=== PATIENT | male | born 1985 | race Caucasian/White ===

== ENCOUNTER 2023-02-19 18:54 | Emergency (ER) | payer MEDICAID, SELFPAY ==
[2023-02-19 18:55] VITALS: BP 110/55; PULSE 98; RESP 17; TEMP 37.3; O2SAT 98; BMI 27.3
--- NOTE | 2023-02-19 19:23 | EXP.UTC ---
Discharge Plan Disposition Patient Disposition: Home, Self-Care Condition: Good Prescriptions Prescriptions: New clindamycin HCl 300 mg capsule 300 mg PO Q8H Qty: 30 0RF ibuprofen [IBU] 800 mg tablet 800 mg PO Q8HP PRN (Reason: Moderate Pain) Qty: 30 0RF Referrals Follow up/Referrals: Lyubov Garcia APRN [Primary Care Provider] - See instructions Activity Restrictions/Add. Instructions Additional Instructions/Restrictions: Take the ibuprofen for pain. Take the medications as directed. Follow up with your dentist Follow up with your primary care provider. GO TO THE ER FOR ANY WORSENING SYMPTOMS Clinical Impressions Clinical Impression: Abscess, dental Instructions Patient Instructions: Tooth Abscess, DI for Tooth Abscess, Ceftriaxone Injection Discharge ED Provider: Last Ng [facility] General Stated complaint: dental pain, nausea Mode of Arrival: Ambulatory Source of Information: Patient Limitations: No Limitations Time Seen by Provider: 02/19/23 19:23 Description of Symptoms (Recalled from Triage Doc. by RN): 37 M presents from home with c/o generalized illness, cough, dental pain, and nausea. He had his wisdom teeth cut out on 01/28/2023 and has felt bad since. He c/o mostly pain to the right side of his face. Denies fever History of Present Illness Provider Complaint: He has had worsening dental pain, swelling around a tooth extraction site in his right lower jaw, and swelling in that area of his face for the past 1 week. He just finished a round of amoxicillin that was prescribed by his dentist. He is here to see about more antibiotics. He has a f/u appt with his dentist. Related Data Previous Rx's Medication Instructions Recorded clindamycin HCl 300 mg capsule 300 mg PO Q8H #30 caps 02/19/23 ibuprofen 800 mg tablet (IBU) 800 mg PO Q8HP PRN Moderate Pain 02/19/23 #30 tabs Allergies Allergy/AdvReac Type Severity Reaction Status Date / Time INGREDIENT: NO KNOWN - NO Allergy Unknown Uncoded 09/30/17 15:13 KNOWN DRUG ALLERGY [facility] Disclaimer: The information contained in this section may have been updated after the patient was seen, as this information can be updated by other users. Social History Smoking Status: Former smoker alcohol intake: former current occupational status: employed Travel in the last 8 weeks: None ROS Obtained: Yes All systems reviewed & no additional complaints except as documented Constitutional Constitutional: Denies chills and Denies fever(s) Eyes Eyes: Denies eye discharge ENT Ears, Nose, Mouth, and Throat: Reports as per HPI, Denies dizziness, Denies otalgia and Denies sore throat Cardiovascular Cardiovascular: Denies chest pain Respiratory Respiratory: Denies shortness of breath, Denies chest congestion, Denies cough, Denies stridor and Denies wheezing Gastrointestinal Gastrointestingal: Denies nausea or vomiting Musculoskeletal Musculoskeletal: Reports system reviewed and no additional complaints, except as documented and Denies arthralgias Integumentary/Breasts Skin/Breast: Denies rash Neurologic Neurologic: Denies dizziness and Denies paresthesias Allergic/Immunologic Allergic/Immunologic: Denies wheezing Physical Exam General General appearance: alert and in no apparent distress Head Head exam: atraumatic, normocephalic and normal inspection Eye Eye exam: Present normal appearance, PERRL and EOMI ENT ENT exam: Present mucous membranes moist, TM's normal bilaterally and normal external ear exam Expanded ENT Exam Nose exam: Absent sinus tenderness Nasal speculum exam: Bilateral: normal Mouth exam: Present normal external inspection; Absent drooling Teeth exam: Present dental caries, fractured tooth #, dental tenderness # and gingival swelling Throat exam: Present normal inspection Neck Neck exam: Present normal inspection, full ROM and trachea m
[2023-02-19 20:16] VITALS: BP 110/55; PULSE 98; RESP 17; TEMP 37.3
== END 2023-02-19 20:24 | disposition home or self-care (01) ==
LOC: ER 19:08 → UTC 19:08
PROVIDERS: Emergency Provider Nurse Practitioner Family; PCP Nurse Practitioner
DX: K04.7 Periapical abscess without sinus (principal); R50.9 Fever, unspecified; R11.0 Nausea; Z87.891 Personal history of nicotine dependence
CPT/HCPCS: 96372; 99204; 99212; G0463; J0696

== ENCOUNTER 2024-12-19 16:39 | Observation (INO) | payer MEDICAID, SELFPAY ==
[2024-12-19 16:39] VITALS: BP 122/88; PULSE 134; RESP 24; TEMP 37.2; O2SAT 98; BMI 28.1
--- NOTE | 2024-12-19 17:05 | ECG_ITS ---
APPROVED REPORT Exam: Resting ECG HR:132 bpm ECG Measurements Heart Rate 132 AXES [place] 157 P 79 QRSd 81 QRS 37 QT 295 T 64 QTc 373 Conclusion SINUS TACHYCARDIA Electronically signed by : VARUN DAVILA, 12/19/2024 23:40:43
[2024-12-19] MEDS: BELLADONNA ALKALOIDS 60 ML ML PO (17:38)
[2024-12-19 17:46] LABS: Microscopic, Urine URINE MICROSCOPIC (MICROSCOPIC)
--- NOTE | 2024-12-19 17:52 | CT_ITS ---
PROCEDURE INFORMATION: Exam: CT Abdomen And Pelvis Without Contrast Exam date and time: 12/19/2024 5:03 PM Age: 39 years old Clinical indication: Abdominal pain; Additional info: Renal stone protocol TECHNIQUE: Imaging protocol: Computed tomography of the abdomen and pelvis without contrast. Radiation optimization: All CT scans at this facility use at least one of these dose optimization techniques: automated exposure control; mA and/or kV adjustment per patient size (includes targeted exams where dose is matched to clinical indication); or iterative reconstruction. COMPARISON: No relevant prior studies available. FINDINGS: Liver: Normal. No mass. Gallbladder and biliary ducts: Normal. No calcified stones. No ductal dilation. Pancreas: Normal. No ductal dilation. Spleen: Normal. No splenomegaly. Adrenal glands: Normal. No mass. Kidneys and ureters: There are no renal or ureteral calculi. There is no hydronephrosis or hydroureter. Stomach and bowel: Unremarkable. No obstruction. No mucosal thickening. Appendix: The appendix is absent. Intraperitoneal space: Unremarkable. No free air. No significant fluid collection. Vasculature: Unremarkable. No abdominal aortic aneurysm. Lymph nodes: Unremarkable. No enlarged lymph nodes. Urinary bladder: The urinary bladder is poorly evaluated due to underdistention. Reproductive: Unremarkable as visualized. Bones/joints: Unremarkable. No acute fracture. Soft tissues: Bilateral 2 cm fat containing inguinal hernias. IMPRESSION: No acute intra-abdominal abnormality. Bilateral 2 cm fat containing inguinal hernias.
[2024-12-19 17:59] VITALS: BP 133/87; PULSE 113; O2SAT 99
[2024-12-19 18:07] LABS: Chloride 103 mmol/L (98-107)
[2024-12-19 18:08] LABS: Albumin Level 5.5 g/dl (3.5-5.0); Potassium 4.8 mmoL/L (3.5-5.1); Sodium 138 mmol/L (136-145)
[2024-12-19 18:11] LABS: Alanine Aminotransferase 46 U/L (12-78); Albumin/Globulin Ratio 1.3 (1.1-1.8); Alkaline Phosphatase 115 U/L (38-126); Anion Gap 18.8 mEq/L (5-15); Aspartate Amino Transferase 63 U/L (17-59); Bilirubin,Total 3.1 mg/dl (0.2-1.3); Blood Urea Nitrogen 20 mg/dl (9-20); Calcium 10.7 mg/dl (8.4-10.2); Carbon Dioxide 21 mmol/L (22.0-30.0); Creatine Kinase 96 U/L (55-170); Creatinine Clearance Estimated 115 mL/min (50-200); Estimated Glomerular Filt Rate 83 ml/min (>60); GFR (African American) 101 ML/MIN (>60); Globulin 4.4 g/dL (1.3-3.2); Glucose 96 mg/dl (74-100); Lipase 128 U/L (23-300); Magnesium 1.8 mg/dl (1.6-2.3); Total Protein,Serum 9.9 g/dl (6.3-8.2)
[2024-12-19 18:19] LABS: Appearance,Urine Clear (Clear); Color,Urine Dark Yellow (Yellow); Glucose,Urine (UA) Negative (Negative); PH,Urine 6.5 (5.0-8.5); Protein,Urine Trace (Negative); Specific Gravity, Urine 1.025 (1.005-1.030)
[2024-12-19 18:20] LABS: Blood, Urine Trace (Negative); Ketones,Urine Large (Negative); Nitrate,Urine Negative (Negative)
[2024-12-19 18:21] LABS: Bilirubin,Urine Trace (Negative); Leukocyte Esterase,Urine Negative (Negative)
[2024-12-19 18:23] LABS: Troponin I 0.02 ng/ml (0.00-0.034)
[2024-12-19 18:27] LABS: Bacteria,Urine 2+ /lpf; Mucus,Urine 3+ /lpf; RBC,Urine Occasional #/hpf (0-3); Squamous Epithelial Cell,Urine Occasional #/hpf (0-5)
[2024-12-19 18:42] LABS: Thyroid Stimulating Hormone 1.36 uIU/mL (0.465-4.68)
[2024-12-19 19:37] LABS: Basophils # 0.1 K/mm3 (0-0.2); Basophils % 0.4 % (0.1-2.0); Eosinophils % 0.3 % (0.1-12.0); Hematocrit 48.1 % (42.0-52.0); Hemoglobin 16.8 g/dL (14.1-18.0); Lymphocytes # 3.1 K/mm3 (0.7-4.5); Lymphocytes % 23.3 % (10-50); Mean Corpuscular HGB Conc 34.9 g/dL (31.8-35.4); Mean Corpuscular Volume 85.9 fl (80-94); Mean Platelet Volume 10.1 fl (7.4-10.4); Monocytes # 1.6 K/mm3 (0.1-1.0); Monocytes % 11.8 % (1.7-9.3); Neutrophils # 8.6 K/mm3 (1.8-7.8); Neutrophils % 63.9 % (37.0-80.0); Platelet Count 324 K/mm3 (142-424); White Blood Count 13.4 K/mm3 (4.8-10.8)
[2024-12-19 19:46] VITALS: BP 144/89; PULSE 125; O2SAT 99
--- NOTE | 2024-12-19 19:52 | PC.NURSE ---
rounded on pt . pt voices no needs. call light in reach. family at bedside.
[2024-12-19 20:00] VITALS: BP 115/92; PULSE 100; O2SAT 99
[2024-12-19] MEDS: LIDOCAINE 1% 10ML MDV SUBCUT (20:13)
[2024-12-19] MEDS: ONDANSETRON 4MG ODT 4 MG SL (20:13)
[2024-12-19] MEDS: cefTRIAXone 1GM VIAL 1 GM IM (20:13)
[2024-12-19 20:23] LABS: Troponin I < 0.01 ng/ml (0.00-0.034)
[2024-12-19] MEDS: HYDROMORPHONE 2MG/ML SYRINGE 0.5 MG IV (21:01)
[2024-12-19 22:47] LABS: Barbiturates Screen,Urine Negative ng/ml (<200)
[2024-12-19 22:48] LABS: Benzodiazepines Screen,Urine Negative ng/ml (<200)
[2024-12-19 22:49] LABS: Cannabinoid Screen,Urine Positive ng/ml (<50)
[2024-12-19 22:50] LABS: Cocaine Screen,Urine Negative ng/ml (<300); Methadone Screen,Urine Negative ng/ml (<300)
[2024-12-19 22:51] LABS: Opiate Screen,Urine Negative ng/ml (<300)
[2024-12-19 22:52] LABS: Phencyclidine Screen,Urine Negative ng/ml (<25)
--- NOTE | 2024-12-19 22:54 | HMH.EDGENADL ---
Discharge Plan Disposition Patient Disposition: Admitted Condition: Good Prescriptions Prescriptions: No Action clindamycin HCl 300 mg capsule 300 mg PO Q8H Qty: 30 0RF ibuprofen [IBU] 800 mg tablet 800 mg PO Q8HP PRN (Reason: Moderate Pain) Qty: 30 0RF Referrals Follow up/Referrals: Provider,Referral, [Primary Care Provider] - See instructions Clinical Impressions Clinical Impression: Abdominal pain, Acute UTI Print Language Print Language: Hebrew Discharge ED Provider: Ganesh Olvera General Adult HPI <JABARI Ravi - Last Filed: 12/19/24 23:44> General Chief complaint: Chest Pain Stated complaint: chest pain Time Seen by Provider: 12/19/24 16:55 Mode of Arrival: Ambulatory Source of Information: Patient Description of Symptoms (Recalled from ER Triage Doc. by RN): pt having chest and abdominal pain for two days. anxious. History of Present Illness HPI narrative: Patient presents complaining of abdominal pain. He reports a pop in his abdomen when he attempted to urinate. He reports black urine. He has had some dysuria as well. He has had subjective fever. Denies any nausea or vomiting. Started yesterday evening complaint: Abdominal pain Onset (ago): day(s) (1) Location: abdomen Radiation: non-radiation Severity: moderate Quality: other (pop ) Consistency: constant Relieving factors: none Exacerbating factors: none Associated symptoms: fever/chills; negative nausea/vomiting Related Data Previous Rx's ?Medication ?Instructions ?Recorded clindamycin HCl 300 mg capsule 300 mg PO Q8H #30 caps 02/19/23 ibuprofen 800 mg tablet (IBU) 800 mg PO Q8HP PRN Moderate Pain 02/19/23 #30 tabs Allergies Allergy/AdvReac Type Severity Reaction Status Date / Time INGREDIENT: NO KNOWN - NO Allergy Unknown Uncoded 09/30/17 15:13 KNOWN DRUG ALLERGY [facility] <JABARI Ravi - Last Filed: 12/19/24 23:44> [facility] Disclaimer: The information contained in this section may have been updated after the patient was seen, as this information can be updated by other users. Social History (Updated 02/20/23 @ 09:04 by Last Ng APRN) Smoking Status: Unknown if ever smoked alcohol intake: former current occupational status: employed Travel in the last 8 weeks: None Have you lived/traveled outside [place] in past 30 days?: No Contact w/someone who lives/traveled outside US past 30 days?: No Exposure to someone with infectious disease in past 14 days?: No Do you have a fever (greater than 100.4 F or 38 C)?: No Have you tested positive for COVID-19: No Exposed to someone with COVID-19 in past 14 days?: No Do you have a sore throat?: No Do you have a cough?: No Do you have any weakness?: No Do you have any diarrhea?: No Are you experiencing any unusual bleeding?: No Do you have any muscle aches/pain?: No Do you have any abdominal pain?: No Are you experiencing loss of taste or smell?: No <JABARI Ravi - Last Filed: 12/19/24 23:44> ROS Obtained: Yes Systems reviewed as appropriate & no additional complaints except as documented Physical Exam <JABARI Ravi Last Filed: 12/19/24 23:44> General General appearance: alert and in no apparent distress Head Head exam: atraumatic and normocephalic Eye Eye exam: Present normal appearance and EOMI Chest Chest inspection: Present symmetric chest wall rise Respiratory Respiratory exam: Present normal lung sounds bilaterally; Absent wheezes or stridor Cardiovascular Cardiovascular exam: Present regular rate and normal rhythm; Absent systolic murmur Abdominal Exam Abdominal exam: Present soft; Absent distention, guarding or rebound Abdominal tenderness: Present LUQ and LLQ Extremities Exam Extremities exam: Present full ROM Neurological Exam Neurological exam: Present alert and oriented X3 Psychiatric Psychiatric exam: Present normal affect and normal mood Skin Skin exam: Present warm, dry and intact Medical Decision Making <JABARI Ravi Last Filed: 12/19/24 23:44> Medical Records Screening: Per USPSTF and CDC recommendations, given the prevalence of disease in our region, it is our hospital?s policy to screen for HIV and viral Hepatitis for all patients aged 18 and over and those with ongoing risk factors. [place] Inquiry Pt receiving controlled substance: No Vital Signs: 12/19/24 16:39 12/19/24 17:59 12/19/24 19:46 Temperature 98.9 F Temperature Source Oral Pulse Rate 113 H 125 H Pulse Rate [Right] 134 H Respiratory Rate 24 Blood Pressure 133/87 144/89 H Blood Pressure [Right Arm] 122/88 Blood Pressure Mean 97 Blood Pressure Mean [Right Arm] 99 02 Sat by Pulse Oximetry 98 99 99 Oxygen Delivery Method Room Air Room Air 12/19/24 20:00 Temperature Temperature Source Pulse Rate 100 H Pulse Rate [Right] Respiratory Rate Blood Pressure 115/92 H Blood Pressure [Right Arm] Blood Pressure Mean Blood Pressure Mean [Right Arm] 02 Sat by Pulse Oximetry 99 Oxygen Delivery Method Lab Data Lab Results 12/19/24 17:40: Sodium 138, Potassium 4.8, Chloride 103, Carbon Dioxide 21 L, Anion Gap 18.8 H, BUN 20, Creatinine 1.00, Estimated Creat Clear 115, Estimated GFR 83, Est GFR ( Amer) 101, Glucose 96, Calcium 10.7 H, Magnesium 1.8, Total Bilirubin 3.1 H, AST 63 H, ALT 46, Alkaline Phosphatase 115, Total Creatine Kinase 96, Troponin I 0.02, Total Protein 9.9 H, Albumin 5.5 H, Globulin 4.4 H, Albumin/Globulin Ratio 1.3, Lipase 128, TSH 1.36, Urine Color Dark yellow, Urine Appearance Clear, Urine pH 6.5, Ur Specific [place] 1.025, Urine Protein Trace A, Urine Glucose (UA) Negative, Urine Ketones Large, Urine Blood Trace A, Urine Nitrate Negative, Urine Bilirubin Trace, Urine Urobilinogen 2.0, Ur Leukocyte Esterase Negative, Urine RBC Occasional, Urine WBC 5-10, Ur Squamous Epith Cells Occasional, Urine Bacteria 2+, Urine Mucus 3+, Urine Opiates Screen Negative, Urine Methadone Screen Negative, Ur Barbituates Screen Negative, Ur Phencyclidine Scrn Negative, Ur Amphetamines Screen TNP, U Benzodiazepines Scrn Negative, Urine Cocaine Screen Negative, U Marijuana (THC) Screen Positive H 12/19/24 19:30: WBC 13.4 H, RBC 5.60, Hgb 16.8, Hct 48.1, MCV 85.9, MCH 30.0, MCHC 34.9, RDW 12.0, Plt Count 324, MPV 10.1, Neut % (Auto) 63.9, Lymph % (Auto) 23.3, [place] % (Auto) 11.8 H, Eos % (Auto) 0.3, Baso % (Auto) 0.4, Neut # (Auto) 8.6 H, Lymph # (Auto) 3.1, [place] # (Auto) 1.6 H, Eos # (Auto) 0.0, Baso # (Auto) 0.1, Troponin I < 0.01 12/19/24 23:00: Lactate 2.1, Troponin I < 0.01 12/19/24 19:30 12/19/24 17:40 Orders (Tests/Meds): ED MEDICATIONS Generic Name Dose Route Start Last Admin Trade Name Freq PRN Reason Stop Dose Admin Acetaminophen 650 mg 12/19/24 23:38 Acetaminophen 325mg Tab PO 01/18/25 23:37 Q4HP PRN Fever or Mild Pain (1-3) Docusate Sodium 100 mg 12/20/24 09:00 Docusate Sodium 100 Mg Capsule PO 01/19/25 08:59 DAILY ARLEN Enoxaparin Sodium 40 mg 12/20/24 09:00 Enoxaparin 40mg/0.4ml Syringe SUBCUT 01/19/25 08:59 DAILY ARLEN Sodium Chloride 1,000 mls @ 100 mls/hr 12/19/24 23:45 Sod Chlor 0.9% 1000ml Bag IV 01/18/25 23:44 .Q10H ARLEN Ceftriaxone Sodium 1 gm/ 50 mls @ 100 mls/hr 12/20/24 09:00 Sodium Chloride IV 12/30/24 08:59 Q24H ARLEN Ketorolac Tromethamine 30 mg 12/19/24 23:38 Ketorolac 30mg/Ml Vial IV 12/24/24 23:37 Q6HP PRN Moderate Pain (4-6) Nicotine 21 mg 12/19/24 23:38 Nicotine 21mg/24hr Patch TD 01/18/25 23:37 DAILYP PRN Nicotine Cravings Ondansetron HCl 4 mg 12/19/24 23:38 Ondansetron 4mg/2ml Vial IV 01/18/25 23:37 Q8HP PRN Nausea Discontinued Medications Generic Name Dose Route Start Last Admin Trade Name Freq PRN Reason Stop Dose Admin Belladonna Alkaloids 60 ml 12/19/24 17:36 12/19/24 17:38 Belladonna Alkaloids 60 Ml Ml PO 12/19/24 17:37 60 ml ONCE ONE Administration Ceftriaxone Sodium 1 gm 12/19/24 20:15 12/19/24 20:13 Ceftriaxone 1gm Vial IM 12/19/24 20:16 1 gm ONCE ONE Administration Hydromorphone HCl 0.5 mg 12/19/24 20:27 12/19/24 21:01 Hydromorphone 2mg/Ml Syringe IV 12/19/24 20:28 0.5 mg ONCE ONE Administration Ceftriaxone Sodium 1 gm/ 50 mls @ 100 mls/hr 12/19/24 19:02 12/19/24 20:03 Sodium Chloride IV 12/19/24 19:31 Not Given ONCE STA Lidocaine HCl 1 ml 12/19/24 20:12 12/19/24 20:13 Lidocaine 1% 10ml Mdv SUBCUT 12/19/24 20:13 1 ml ONCE ONE Administration Ondansetron HCl 4 mg 12/19/24 17:05 12/19/24 20:03 Ondansetron 4mg/2ml Vial IV 12/19/24 17:06 Not Given ONCE ONE Ondansetron HCl 4 mg 12/19/24 20:15 12/19/24 20:13 Ondansetron 4mg Odt SL 12/19/24 20:16 4 mg ONCE ONE Administration ORDERS Category Date Time Status CT abdomen pelvis wo con Stat Cat Scan 12/19/24 17:52 Completed Basic Metabolic Panel [facility] Lab 12/20/24 06:00 Ordered CBC w/Auto Diff [Complete Blood Count Auto Diff] Stat Lab 12/19/24 19:30 Completed CK [Creatine Kinase] Stat Lab 12/19/24 17:40 Completed CMP [Comprehensive Metabolic Panel] Stat Lab 12/19/24 17:40 Completed CRP [C-Reactive Protein] [facility] Lab 12/20/24 06:00 Ordered CRP [C-Reactive Protein] Stat Lab 12/19/24 23:44 Ordered Chlam/Gono/Trich/Myco, YAMILKA, Ur Stat Lab 12/19/24 Received Comprehensive Metabolic Panel [facility] Lab 12/20/24 06:00 Ordered Drug Screen,Urine Stat Lab 12/19/24 17:40 Completed Erythrocyte Sedimentation Rate [facility] Lab 12/20/24 06:00 Ordered Erythrocyte Sedimentation Rate Stat Lab 12/19/24 23:44 Ordered Lactic Acid Stat Lab 12/19/24 23:00 Completed Lipase Stat Lab 12/19/24 17:40 Completed Lipid Panel [facility] Lab 12/20/24 06:00 Ordered Magnesium [facility] Lab 12/20/24 06:00 Ordered Magnesium Stat Lab 12/19/24 17:40 Completed TSH [Thyroid Stimulating Hormone] Stat Lab 12/19/24 17:40 Completed Trop I [Troponin I] Stat Lab 12/19/24 17:40 Completed Troponin I Q3H Lab 12/19/24 19:30 Completed Troponin I Q3H Lab 12/19/24 23:00 Completed Urinalysis and Microscopic Stat Lab 12/19/24 17:40 Completed Urine Culture Stat Micro 12/19/24 17:40 Received EKG Request [ECG Request] Stat Y 12/19/24 17:05 Ordered Medical Decision Narrative: In summary patient is a 39-year-old male who presents the emergency department for evaluation of abdominal pain. Patient is hemodynamically upon arrival, afebrile. Left-sided abdominal tenderness on exam. Differential diagnosis includes ureteral stone, diverticulitis, viral illness. Initial workup will be conducted with hematologic labs, CT abdomen pelvis. Initial inventions include IV fluid bolus. Initial workup reviewed by me remarkable for hematuria, white blood cells on urine and elevated bilirubin. Upon repeat evaluation patient has had intractable abdominal pain. Given this patient was given Rocephin for UTI and admitted to the hospitalist. <Ganesh Olvera MD - Last Filed: 12/19/24 23:46> Vital Signs: 12/19/24 16:39 12/19/24 17:59 12/19/24 19:46 Temperature 98.9 F Temperature Source Oral Pulse Rate 113 H 125 H Pulse Rate [Right] 134 H Respiratory Rate 24 Blood Pressure 133/87 144/89 H Blood Pressure [Right Arm] 122/88 Blood Pressure Mean 97 Blood Pressure Mean [Right Arm] 99 02 Sat by Pulse Oximetry 98 99 99 Oxygen Delivery Method Room Air Room Air 12/19/24 20:00 Temperature Temperature Source Pulse Rate 100 H Pulse Rate [Right] Respiratory Rate Blood Pressure 115/92 H Blood Pressure [Right Arm] Blood Pressure Mean Blood Pressure Mean [Right Arm] 02 Sat by Pulse Oximetry 99 Oxygen Delivery Method Lab Data Lab Results 12/19/24 17:40: Sodium 138, Potassium 4.8, Chloride 103, Carbon Dioxide 21 L, Anion Gap 18.8 H, BUN 20, Creatinine 1.00, Estimated Creat Clear 115, Estimated GFR 83, Est GFR ( Amer) 101, Glucose 96, Calcium 10.7 H, Magnesium 1.8, Total Bilirubin 3.1 H, AST 63 H, ALT 46, Alkaline Phosphatase 115, Total Creatine Kinase 96, Troponin I 0.02, Total Protein 9.9 H, Albumin 5.5 H, Globulin 4.4 H, Albumin/Globulin Ratio 1.3, Lipase 128, TSH 1.36, Urine Color Dark yellow, Urine Appearance Clear, Urine pH 6.5, Ur Specific [place] 1.025, Urine Protein Trace A, Urine Glucose (UA) Negative, Urine Ketones Large, Urine Blood Trace A, Urine Nitrate Negative, Urine Bilirubin Trace, Urine Urobilinogen 2.0, Ur Leukocyte Esterase Negative, Urine RBC Occasional, Urine WBC 5-10, Ur Squamous Epith Cells Occasional, Urine Bacteria 2+, Urine Mucus 3+, Urine Opiates Screen Negative, Urine Methadone Screen Negative, Ur Barbituates Screen Negative, Ur Phencyclidine Scrn Negative, Ur Amphetamines Screen TNP, U Benzodiazepines Scrn Negative, Urine Cocaine Screen Negative, U Marijuana (THC) Screen Positive H 12/19/24 19:30: WBC 13.4 H, RBC 5.60, Hgb 16.8, Hct 48.1, MCV 85.9, MCH 30.0, MCHC 34.9, RDW 12.0, Plt Count 324, MPV 10.1, Neut % (Auto) 63.9, Lymph % (Auto) 23.3, [place] % (Auto) 11.8 H, Eos % (Auto) 0.3, Baso % (Auto) 0.4, Neut # (Auto) 8.6 H, Lymph # (Auto) 3.1, [place] # (Auto) 1.6 H, Eos # (Auto) 0.0, Baso # (Auto) 0.1, Troponin I < 0.01 12/19/24 23:00: Lactate 2.1, Troponin I < 0.01 Orders (Tests/Meds): ED MEDICATIONS Generic Name Dose Route Start Last Admin Trade Name Freq PRN Reason Stop Dose Admin Acetaminophen 650 mg 12/19/24 23:38 Acetaminophen 325mg Tab PO 01/18/25 23:37 Q4HP PRN Fever or Mild Pain (1-3) Docusate Sodium 100 mg 12/20/24 09:00 Docusate Sodium 100 Mg Capsule PO 01/19/25 08:59 DAILY ARLEN Enoxaparin Sodium 40 mg 12/20/24 09:00 Enoxaparin 40mg/0.4ml Syringe SUBCUT 01/19/25 08:59 DAILY ARLEN Sodium Chloride 1,000 mls @ 100 mls/hr 12/19/24 23:45 Sod Chlor 0.9% 1000ml Bag IV 01/18/25 23:44 .Q10H ARLEN Ceftriaxone Sodium 1 gm/ 50 mls @ 100 mls/hr 12/20/24 09:00 Sodium Chloride IV 12/30/24 08:59 Q24H ARLEN Ketorolac Tromethamine 30 mg 12/19/24 23:38 Ketorolac 30mg/Ml Vial IV 12/24/24 23:37 Q6HP PRN Moderate Pain (4-6) Nicotine 21 mg 12/19/24 23:38 Nicotine 21mg/24hr Patch TD 01/18/25 23:37 DAILYP PRN Nicotine Cravings Ondansetron HCl 4 mg 12/19/24 23:38 Ondansetron 4mg/2ml Vial IV 01/18/25 23:37 Q8HP PRN Nausea Discontinued Medications Generic Name Dose Route Start Last Admin Trade Name Freq PRN Reason Stop Dose Admin Belladonna Alkaloids 60 ml 12/19/24 17:36 12/19/24 17:38 Belladonna Alkaloids 60 Ml Ml PO 12/19/24 17:37 60 ml ONCE ONE Administration Ceftriaxone Sodium 1 gm 12/19/24 20:15 12/19/24 20:13 Ceftriaxone 1gm Vial IM 12/19/24 20:16 1 gm ONCE ONE Administration Hydromorphone HCl 0.5 mg 12/19/24 20:27 12/19/24 21:01 Hydromorphone 2mg/Ml Syringe IV 12/19/24 20:28 0.5 mg ONCE ONE Administration Ceftriaxone Sodium 1 gm/ 50 mls @ 100 mls/hr 12/19/24 19:02 12/19/24 20:03 Sodium Chloride IV 12/19/24 19:31 Not Given ONCE STA Lidocaine HCl 1 ml 12/19/24 20:12 12/19/24 20:13 Lidocaine 1% 10ml Mdv SUBCUT 12/19/24 20:13 1 ml ONCE ONE Administration Ondansetron HCl 4 mg 12/19/24 17:05 12/19/24 20:03 Ondansetron 4mg/2ml Vial IV 12/19/24 17:06 Not Given ONCE ONE Ondansetron HCl 4 mg 12/19/24 20:15 12/19/24 20:13 Ondansetron 4mg Odt SL 12/19/24 20:16 4 mg ONCE ONE Administration ORDERS Category Date Time Status CT abdomen pelvis wo con Stat Cat Scan 12/19/24 17:52 Completed Basic Metabolic Panel [facility] Lab 12/20/24 06:00 Ordered CBC w/Auto Diff [Complete Blood Count Auto Diff] Stat Lab 12/19/24 19:30 Completed CK [Creatine Kinase] Stat Lab 12/19/24 17:40 Completed CMP [Comprehensive Metabolic Panel] Stat Lab 12/19/24 17:40 Completed CRP [C-Reactive Protein] [facility] Lab 12/20/24 06:00 Ordered CRP [C-Reactive Protein] Stat Lab 12/19/24 23:44 Ordered Chlam/Gono/Trich/Myco, YAMILKA, Ur Stat Lab 12/19/24 Received Comprehensive Metabolic Panel [facility] Lab 12/20/24 06:00 Ordered Drug Screen,Urine Stat Lab 12/19/24 17:40 Completed Erythrocyte Sedimentation Rate [facility] Lab 12/20/24 06:00 Ordered Erythrocyte Sedimentation Rate Stat Lab 12/19/24 23:44 Ordered Lactic Acid Stat Lab 12/19/24 23:00 Completed Lipase Stat Lab 12/19/24 17:40 Completed Lipid Panel [facility] Lab 12/20/24 06:00 Ordered Magnesium [facility] Lab 12/20/24 06:00 Ordered Magnesium Stat Lab 12/19/24 17:40 Completed TSH [Thyroid Stimulating Hormone] Stat Lab 12/19/24 17:40 Completed Trop I [Troponin I] Stat Lab 12/19/24 17:40 Completed Troponin I Q3H Lab 12/19/24 19:30 Completed Troponin I Q3H Lab 12/19/24 23:00 Completed Urinalysis and Microscopic Stat Lab 12/19/24 17:40 Completed Urine Culture Stat Micro 12/19/24 17:40 Received EKG Request [ECG Request] Stat Y 12/19/24 17:05 Ordered Medical Decision Narrative: In summary patient is a 39-year-old male who presents the emergency department for evaluation of abdominal pain. Patient is hemodynamically upon arrival, afebrile. Left-sided abdominal tenderness on exam. Differential diagnosis includes ureteral stone, diverticulitis, viral illness. Initial workup will be conducted with hematologic labs, CT abdomen pelvis. Initial inventions include IV fluid bolus. Initial workup reviewed by me remarkable for hematuria, white blood cells on urine and elevated bilirubin. Upon repeat evaluation patient has had intractable abdominal pain. Given this patient was given Rocephin for UTI and admitted to the hospitalist. I was consulted by the LYDIA, and we discussed the complexity of the problems being addressed.I approved the treatment and management plan for this patient?s care in the Emergency Department, thus performing a substantive portion of the medical decision making.Signed, Gaensh Olvera MD [facility] <JABARI Ravi - Last Filed: 12/19/24 23:44> Critical Care Time Critical Care Time: No
[2024-12-19 23:35] LABS: Lactic Acid 2.1 mmol/L (0.7-2.1)
--- NOTE | 2024-12-19 23:44 | P.HP_ITS ---
<Statement entered by Last Lopez MD - 12/20/24 15:25> Rounded on patient after nurse practitioner. Personally examined and interviewed patient. Agree with exam findings and care plan as documented. History of Present Illness *Admission Date: 12/19/24 *Reason for visit:: Abdominal pain *History of present illness: A 39-year-old male presents to the emergency department complaining of abdominal pain of unclear duration. He initially reported to ED staff a sudden pop sensation in his abdomen while attempting to urinate, followed by persistent left-sided pain, black urine, dysuria, and a subjective fever. He denied nausea or vomiting at that time. However, during my subsequent interview as the consulting hospitalist, he provided a conflicting history, endorsing multiple bouts of diarrhea with dark stools?details not disclosed to the ED team. He also reported infrequent bowel movements, sometimes going up to 30 days without one, and initially claimed stool softeners as his only medication. A PDMP review revealed a prescription for Suboxone 16 mg daily, which he admitted to taking but stated he skipped today due to severe stomach pain. He denies NSAID use, citing a history of hepatitis. Initial workup revealed hematuria (urine RBC occasional), white blood cells (5- 10 WBC/hpf), and trace bilirubin on urinalysis, with dark yellow urine and large ketones noted. Labs showed an elevated total bilirubin (3.1 mg/dL), AST (63 U/L), mild leukocytosis (WBC 13.4 x10?/?L), lactic acid of 2.1 mmol/L, and an anion gap of 18.8 mEq/L, with normal creatinine (1.00 mg/dL) and glucose (96 mg/dL). CT abdomen/pelvis identified bilateral 2 cm fat-containing inguinal hernias but no acute intra-abdominal abnormality; the bladder was poorly evaluated due to underdistention. Behaviorally, he exhibits dramatic groaning upon room entry but speaks in full sentences without distress when questioned. The nurse observed him rapidly pacing the room, inconsistent with his reported pain severity. Despite describing intractable abdominal pain, he has requested food during his ED stay. A urine drug screen is positive for marijuana, with methamphetamine results pending and a specific Suboxone test ordered due to suspected drug-seeking behavior. Past records show one prior ED visit in February 2023 for a dental infection. No recent trauma is noted. [facility] Disclaimer: The information contained in this section may have been updated after the patient was seen, as this information can be updated by other users. Social History Smoking Status: Unknown if ever smoked alcohol intake: former current occupational status: employed Travel in the last 8 weeks: None Have you lived/traveled outside [place] in past 30 days?: No Contact w/someone who lives/traveled outside US past 30 days?: No Exposure to someone with infectious disease in past 14 days?: No Do you have a fever (greater than 100.4 F or 38 C)?: No Have you tested positive for COVID-19: No Exposed to someone with COVID-19 in past 14 days?: No Do you have a sore throat?: No Do you have a cough?: No Do you have any weakness?: No Do you have any diarrhea?: No Are you experiencing any unusual bleeding?: No Do you have any muscle aches/pain?: No Do you have any abdominal pain?: No Are you experiencing loss of taste or smell?: No Other Medical History Have you received the Flu Vaccine for this season: No Have you received the Pneumonia Vaccine: No Review of Systems Review of Systems Review of systems (narrative): 13 point review of systems negative except as listed in HPI Meds Home Medications and Allergies Home Medications ?Medication ?Instructions ?Recorded ?Confirmed ?Type ibuprofen 800 mg tablet (IBU) 800 mg PO Q8HP PRN Moderate Pain 02/19/23 12/20/24 Rx #30 tabs New Prescriptions to Start Prescriptions: Allergies Allergy/AdvReac Type Severity Reaction Status Date / Time INGREDIENT: NO KNOWN - NO Allergy Unknown Uncoded 09/30/17 15:13 KNOWN DRUG ALLERGY Exam Data for Last 24 hours Vital signs and Labs for Last 24 Hours: Temp Pulse Resp BP Pulse Ox O2 Del Method 98.9 F 100 H 24 115/92 H 99 Room Air 12/19/24 16:39 12/19/24 20:00 12/19/24 16:39 12/19/24 20:00 12/19/24 20:00 12/19/24 19:46 Laboratory Results - last 24 hr 12/19/24 17:40: Sodium 138, Potassium 4.8, Chloride 103, Carbon Dioxide 21 L, Anion Gap 18.8 H, BUN 20, Creatinine 1.00, Estimated Creat Clear 115, Estimated GFR 83, Est GFR ( Amer) 101, Glucose 96, Calcium 10.7 H, Magnesium 1.8, Total Bilirubin 3.1 H, AST 63 H, ALT 46, Alkaline Phosphatase 115, Total Creatine Kinase 96, Troponin I 0.02, Total Protein 9.9 H, Albumin 5.5 H, Globulin 4.4 H, Albumin/Globulin Ratio 1.3, Lipase 128, TSH 1.36, Urine Color Dark yellow, Urine Appearance Clear, Urine pH 6.5, Ur Specific [place] 1.025, Urine Protein Trace A, Urine Glucose (UA) Negative, Urine Ketones Large, Urine Blood Trace A, Urine Nitrate Negative, Urine Bilirubin Trace, Urine Urobilinogen 2.0, Ur Leukocyte Esterase Negative, Urine RBC Occasional, Urine WBC 5-10, Ur Squamous Epith Cells Occasional, Urine Bacteria 2+, Urine Mucus 3+, Urine Opiates Screen Negative, Urine Methadone Screen Negative, Ur Barbituates Screen Negative, Ur Phencyclidine Scrn Negative, Ur Amphetamines Screen TNP, U Benzodiazepines Scrn Negative, Urine Cocaine Screen Negative, U Marijuana (THC) Screen Positive H 12/19/24 19:30: WBC 13.4 H, RBC 5.60, Hgb 16.8, Hct 48.1, MCV 85.9, MCH 30.0, MCHC 34.9, RDW 12.0, Plt Count 324, MPV 10.1, Neut % (Auto) 63.9, Lymph % (Auto) 23.3, [place] % (Auto) 11.8 H, Eos % (Auto) 0.3, Baso % (Auto) 0.4, Neut # (Auto) 8.6 H, Lymph # (Auto) 3.1, [place] # (Auto) 1.6 H, Eos # (Auto) 0.0, Baso # (Auto) 0.1, Troponin I < 0.01 12/19/24 23:00: Lactate 2.1 I & O for Last 24 hours: Intake & Output 12/16/24 12/17/24 12/18/24 12/20/24 23:59 23:59 23:59 00:59 Weight 81.647 kg Constitutional Constitutional: no acute distress, disheveled and cooperative *Routine HEENT Exam Head: Present normocephalic Eye: Present EOMI and PERRL ENT: Present mucous membranes moist; Absent dentition normal (No top teeth) *Routine Neck Exam Neck: Present supple; Absent lymphadenopathy *Routine Respiratory Exam Respiratory: Present CTA bilaterally *Routine Cardiovascular Exam Cardiovascular: Present RRR *Routine Abdominal Exam Abdominal: Present soft, normoactive bowel sounds and tenderness (Reports tenderness in left lower quadrant); Absent guarding *Routine Rectal Exam Rectal:: deferred *Routine Genitalia Exam Genitalia:: deferred *Routine Extremities Exam Extremities: Absent cyanosis, clubbing or edema *Routine Skin Exam Skin: Present warm; Absent rash *Routine Neurological Exam Neurological: Present alert and oriented X3 Routine Psychiatric Exam Psychiatric: Present cooperative and anxious Assessment and Plan *Assessment and plan (1) Leukocytosis: Status: Acute Category: Medical Code(s): D72.829 - Elevated white blood cell count, unspecified (2) History of opiate therapy: Status: Acute Category: Medical Code(s): Z92.29 - Personal history of other drug therapy (3) Elevated bilirubin: Status: Acute Category: Medical Code(s): R17 - Unspecified jaundice (4) History of hepatitis C: Status: Acute Category: Medical Code(s): Z86.19 - Personal history of other infectious and parasitic diseases (5) Inguinal hernia bilateral, non-recurrent: Status: Acute Category: Medical Code(s): K40.20 - Bilateral inguinal hernia, without obstruction or gangrene, not specified as recurrent (6) Dysuria: Status: Acute Category: Medical Code(s): R30.0 - Dysuria Plan * Metabolic Acidosis Workup and Management: * Summary: Elevated anion gap (18.8), lactate (2.1), and ketones suggest substance-related acidosis, sepsis, or dehydration; elevated bilirubin/AST raise hepatic concerns. * Continue IV LR at 100, received bolus in the emergency department to address dehydration and ketosis; repeat lactate in 2 hours. Recheck BMP to trend anion gap and CO2. Await methamphetamine/Suboxone screen results; con tribal delegate serum toxicology if needed. * Abdominal Pain and Urinary Symptoms, leukocytosis: * Summary: Left-sided pain, hematuria, and dysuria suggest ureteral stone or UTI, though CT is negative and urine findings modest; hernias incidental. * Continue Rocephin (e.g., 1g IV) for possible UTI, pending culture. Hold further opioids (gave 0.5 mg IV Dilaudid) unless objective worsening?offer ketorolac (30 mg IV) if safe. Urology consult if symptoms persist; consider repeat imaging with better bladder distention. * Gastrointestinal Evaluation: * Summary: Conflicting diarrhea/dark stool reports and constipation suggest unreliable history; no significant bleed per labs, but bilirubin elevation noted. * Obtain guaiac test or fecal occult blood for dark stools; if positive if positive GI consult. start bowel regimen for constipation. * Outpatient hepatitis panel and liver ultrasound for bilirubin/AST elevation. * 4 mg IV Zofran every 8 as needed for nausea * Substance Use and Behavioral Management: * Summary: Marijuana positive, methamphetamine pending, Suboxone skipped, and inconsistent pain behavior suggest drug-seeking or withdrawal. * Monitor for withdrawal; consult addiction medicine if confirmed. Document drug-seeking suspicion and limit narcotics. * Engage social work for substance support. * Disposition: * Summary: Leukocytosis and fever history minor; admission needed for acidosis, pain, and diagnostics given conflicting data and behavior. * Admit to hospitalist service. * Subcu Lovenox for DVT prophylaxis * Protonix to p.o. prophylaxis
[2024-12-19 23:45] LABS: Troponin I < 0.01 ng/ml (0.00-0.034)
--- NOTE | 2024-12-19 23:45 | P.HP_ITS ---
[facility] Disclaimer: The information contained in this section may have been updated after the patient was seen, as this information can be updated by other users. Social History (Updated 02/20/23 @ 09:04 by Last Ng APRN) Smoking Status: Unknown if ever smoked alcohol intake: former current occupational status: employed Travel in the last 8 weeks: None Have you lived/traveled outside [place] in past 30 days?: No Contact w/someone who lives/traveled outside [place] past 30 days?: No Exposure to someone with infectious disease in past 14 days?: No Do you have a fever (greater than 100.4 F or 38 C)?: No Have you tested positive for COVID-19: No Exposed to someone with COVID-19 in past 14 days?: No Do you have a sore throat?: No Do you have a cough?: No Do you have any weakness?: No Do you have any diarrhea?: No Are you experiencing any unusual bleeding?: No Do you have any muscle aches/pain?: No Do you have any abdominal pain?: No Are you experiencing loss of taste or smell?: No Meds Home Medications and Allergies Home Medications ?Medication ?Instructions ?Recorded ?Confirmed ?Type clindamycin HCl 300 mg capsule 300 mg PO Q8H #30 caps 02/19/23 Rx ibuprofen 800 mg tablet (IBU) 800 mg PO Q8HP PRN Moderate Pain 02/19/23 Rx #30 tabs New Prescriptions to Start Prescriptions: Allergies Allergy/AdvReac Type Severity Reaction Status Date / Time INGREDIENT: NO KNOWN - NO Allergy Unknown Uncoded 09/30/17 15:13 KNOWN DRUG ALLERGY Exam Data for Last 24 hours Vital signs and Labs for Last 24 Hours: Temp Pulse Resp BP Pulse Ox O2 Del Method 98.9 F 100 H 24 115/92 H 99 Room Air 12/19/24 16:39 12/19/24 20:00 12/19/24 16:39 12/19/24 20:00 12/19/24 20:00 12/19/24 19:46 Laboratory Results - last 24 hr 12/19/24 17:40: Sodium 138, Potassium 4.8, Chloride 103, Carbon Dioxide 21 L, Anion Gap 18.8 H, BUN 20, Creatinine 1.00, Estimated Creat Clear 115, Estimated GFR 83, Est GFR ( Amer) 101, Glucose 96, Calcium 10.7 H, Magnesium 1.8, Total Bilirubin 3.1 H, AST 63 H, ALT 46, Alkaline Phosphatase 115, Total Creatine Kinase 96, Troponin I 0.02, Total Protein 9.9 H, Albumin 5.5 H, Globulin 4.4 H, Albumin/Globulin Ratio 1.3, Lipase 128, TSH 1.36, Urine Color Dark yellow, Urine Appearance Clear, Urine pH 6.5, Ur Specific [place] 1.025, Urine Protein Trace A, Urine Glucose (UA) Negative, Urine Ketones Large, Urine Blood Trace A, Urine Nitrate Negative, Urine Bilirubin Trace, Urine Urobilinogen 2.0, Ur Leukocyte Esterase Negative, Urine RBC Occasional, Urine WBC 5-10, Ur Squamous Epith Cells Occasional, Urine Bacteria 2+, Urine Mucus 3+, Urine Opiates Screen Negative, Urine Methadone Screen Negative, Ur Barbituates Screen Negative, Ur Phencyclidine Scrn Negative, Ur Amphetamines Screen TNP, U Benzodiazepines Scrn Negative, Urine Cocaine Screen Negative, U Marijuana (THC) Screen Positive H 12/19/24 19:30: WBC 13.4 H, RBC 5.60, Hgb 16.8, Hct 48.1, MCV 85.9, MCH 30.0, MCHC 34.9, RDW 12.0, Plt Count 324, MPV 10.1, Neut % (Auto) 63.9, Lymph % (Auto) 23.3, [place] % (Auto) 11.8 H, Eos % (Auto) 0.3, Baso % (Auto) 0.4, Neut # (Auto) 8.6 H, Lymph # (Auto) 3.1, [place] # (Auto) 1.6 H, Eos # (Auto) 0.0, Baso # (Auto) 0.1, Troponin I < 0.01 12/19/24 23:00: Lactate 2.1 I & O for Last 24 hours: Intake & Output 12/16/24 12/17/24 12/18/24 12/20/24 23:59 23:59 23:59 00:59 Weight 81.647 kg
[2024-12-20] VITALS: BP 110/67; PULSE 96; TEMP 36.4; O2SAT 100
--- NOTE | 2024-12-20 00:05 | PC.NURSE ---
called report to
[2024-12-20 00:07] LABS: C-Reactive Protein 10.6 mg/L (0-4)
[2024-12-20 00:17] VITALS: BP 124/74; PULSE 90; RESP 18; TEMP 37.2; O2SAT 95
--- NOTE | 2024-12-20 00:19 | PC.NURSE ---
Patient arrived to floor via wheelchair from ED at 00:05.
[2024-12-20] MEDS: BUPRENORPHINE/NALOXONE 8MG/2MG ODT 1 EACH SL (01:24)
[2024-12-20] MEDS: HYDROMORPHONE 2MG/ML SYRINGE 0.5 MG IV (01:25)
[2024-12-20 01:57] LABS: Erythrocyte Sedimentation Rate 4 mm/hr (0-15)
[2024-12-20 03:07] LABS: Reflex Lactic Add Lactic Reflex
[2024-12-20 04:00] VITALS: BMI 28.2
--- NOTE | 2024-12-20 05:24 | PC.NURSE ---
New Admit. V/s, ox4. Pt is quickly pacing his room constantly. When patient got to the floor, pt c/o pain, even though his MAR indicated he had pain medication before coming up to the unit. The nurse discussed this with pt. Pt stated it quickly wore off. Provider notified. See MAR for one time dose orders. Pt stated his pain was in his abdomen, 10/10. Pt then asked for some food since he hadn't ate in a day and a half he stated. Pt admitted to past IV drug use and stated he was hep c positive. Plan of care ongoing.
[2024-12-20 07:15] LABS: Alanine Aminotransferase 35 U/L (12-78); Albumin Level 4.6 g/dl (3.5-5.0); Albumin/Globulin Ratio 1.5 (1.1-1.8); Alkaline Phosphatase 109 U/L (38-126); Anion Gap 13.5 mEq/L (5-15); Aspartate Amino Transferase 35 U/L (17-59); Blood Urea Nitrogen 20 mg/dl (9-20); Calcium 9.7 mg/dl (8.4-10.2); Carbon Dioxide 20 mmol/L (22.0-30.0); Chloride 105 mmol/L (98-107); Chol/HDL Ratio 5.1 (1-3.5); Cholesterol 159 mg/dl (140-200); Creatinine Clearance Estimated 104 mL/min (50-200); Estimated Glomerular Filt Rate 75 ml/min (>60); GFR (African American) 90 ML/MIN (>60); Glucose 99 mg/dl (74-100); HDL Cholesterol 31 mg/dl (40-60); Magnesium 1.7 mg/dl (1.6-2.3); Potassium 3.5 mmoL/L (3.5-5.1); Sodium 135 mmol/L (136-145); Total Protein,Serum 7.6 g/dl (6.3-8.2); Triglycerides 104 mg/dl (30-150); VLDL Cholesterol 21 mg/dL (0-40)
[2024-12-20 07:26] LABS: C-Reactive Protein 8.7 mg/L (0-4)
[2024-12-20 08:00] VITALS: BP 134/64; PULSE 96; RESP 20; TEMP 36.7; O2SAT 98
--- NOTE | 2024-12-20 08:02 | P.DS_ITS ---
General Admission date:: 12/20/24 Discharge date: 12/20/24 HPI HPI HPI: A 39-year-old male presents to the emergency department complaining of abdominal pain of unclear duration. He initially reported to ED staff a sudden pop sensation in his abdomen while attempting to urinate, followed by persistent left-sided pain, black urine, dysuria, and a subjective fever. He denied nausea or vomiting at that time. However, during my subsequent interview as the consulting hospitalist, he provided a conflicting history, endorsing multiple bouts of diarrhea with dark stools?details not disclosed to the ED team. He also reported infrequent bowel movements, sometimes going up to 30 days without one, and initially claimed stool softeners as his only medication. A PDMP review revealed a prescription for Suboxone 16 mg daily, which he admitted to taking but stated he skipped today due to severe stomach pain. He denies NSAID use, citing a history of hepatitis. Initial workup revealed hematuria (urine RBC occasional), white blood cells (5- 10 WBC/hpf), and trace bilirubin on urinalysis, with dark yellow urine and large ketones noted. Labs showed an elevated total bilirubin (3.1 mg/dL), AST (63 U/L), mild leukocytosis (WBC 13.4 x10?/?L), lactic acid of 2.1 mmol/L, and an anion gap of 18.8 mEq/L, with normal creatinine (1.00 mg/dL) and glucose (96 mg/dL). CT abdomen/pelvis identified bilateral 2 cm fat-containing inguinal hernias but no acute intra-abdominal abnormality; the bladder was poorly evaluated due to underdistention. Behaviorally, he exhibits dramatic groaning upon room entry but speaks in full sentences without distress when questioned. The nurse observed him rapidly pacing the room, inconsistent with his reported pain severity. Despite describing intractable abdominal pain, he has requested food during his ED stay. A urine drug screen is positive for marijuana, with methamphetamine results pending and a specific Suboxone test ordered due to suspected drug-seeking behavior. Past records show one prior ED visit in February 2023 for a dental infection. No recent trauma is noted. Hospital Course Hospital Course Hospital Course: 39-year-old male with complaint of abdominal pain. Workup in the ER showed no significant acute finding other than pain. Was complaining of slight metabolic disturbance, GI symptoms, abdominal pain, questionable hematuria dysuria, penile discharge. Concern for possible STD/UTI. Workup showed urine positive for amphetamines, was sent off for confirmative level. Found to be positive for methamphetamine. Symptoms evolved and changed after admission. Overnight patient showed improvement in his abdominal pain. By morning, denied chest pain, shortness of breath, nausea or vomiting. Labs normalized. CRP was improving. Kidney function normal. Stated the only reason he agreed to be admitted was to have his hernia fixed. He has nonobstructive inguinal hernias that do not have any emergent need for intervention. Discussed referring to surgery as an outpatient, patient frustrated and just wanting to go home at this time. States his ride is on its way. Given concern for possible STD, was treated with 1 g of ceftriaxone IV and 1 g azithromycin. Urine still pending at discharge. Tolerating p.o. intake. Patient otherwise at baseline level of function with no acute concerns for infection. In hindsight, presentation most concerning for side effect of drug intoxication (methamphetamine). Medically stable to discharge home. Recommend follow-up with primary care as this further management of chronic and subacute complaints. Of note, patient does have constipation on abdominal imaging. Initiated on bowel regimen. Referred to surgery in case he chooses to follow-up and pursue elective repair of hernia if deemed appropriate. Exam Data for Last 24 hours Vital signs and Labs for Last 24 Hours: Temp Pulse Resp BP Pulse Ox O2 Del Method 99.0 F 90 18 124/74 100 Room Air 12/20/24 00:17 12/20/24 00:17 12/20/24 00:17 12/20/24 00:17 12/20/24 00:00 12/20/24 06:06 Laboratory Results - last 24 hr 12/19/24 17:40: Sodium 138, Potassium 4.8, Chloride 103, Carbon Dioxide 21 L, Anion Gap 18.8 H, BUN 20, Creatinine 1.00, Estimated Creat Clear 115, Estimated GFR 83, Est GFR ( Amer) 101, Glucose 96, Calcium 10.7 H, Magnesium 1.8, Total Bilirubin 3.1 H, AST 63 H, ALT 46, Alkaline Phosphatase 115, Total Creatine Kinase 96, Troponin I 0.02, Total Protein 9.9 H, Albumin 5.5 H, Globulin 4.4 H, Albumin/Globulin Ratio 1.3, Lipase 128, TSH 1.36, Urine Color Dark yellow, Urine Appearance Clear, Urine pH 6.5, Ur Specific [place] 1.025, Urine Protein Trace A, Urine Glucose (UA) Negative, Urine Ketones Large, Urine Blood Trace A, Urine Nitrate Negative, Urine Bilirubin Trace, Urine Urobilinogen 2.0, Ur Leukocyte Esterase Negative, Urine RBC Occasional, Urine WBC 5-10, Ur Squamous Epith Cells Occasional, Urine Bacteria 2+, Urine Mucus 3+, Urine Opiates Screen Negative, Urine Methadone Screen Negative, Ur Barbituates Screen Negative, Ur Phencyclidine Scrn Negative, Ur Amphetamines Screen TNP, U Benzodiazepines Scrn Negative, Urine Cocaine Screen Negative, U Marijuana (THC) Screen Positive H 12/19/24 19:30: WBC 13.4 H, RBC 5.60, Hgb 16.8, Hct 48.1, MCV 85.9, MCH 30.0, MCHC 34.9, RDW 12.0, Plt Count 324, MPV 10.1, Neut % (Auto) 63.9, Lymph % (Auto) 23.3, [place] % (Auto) 11.8 H, Eos % (Auto) 0.3, Baso % (Auto) 0.4, Neut # (Auto) 8.6 H, Lymph # (Auto) 3.1, [place] # (Auto) 1.6 H, Eos # (Auto) 0.0, Baso # (Auto) 0.1, Troponin I < 0.01 12/19/24 23:00: Lactate 2.1, Troponin I < 0.01, C-Reactive Protein 10.6 H 12/20/24 01:20: ESR 4 12/20/24 06:30: Sodium 135 L, Potassium 3.5 D, Chloride 105, Carbon Dioxide 20 L, Anion Gap 13.5, BUN 20, Creatinine 1.10, Estimated Creat Clear 104, Estimated GFR 75, Est GFR ( Amer) 90, Glucose 99, Lactate 1.0, Calcium 9.7, Magnesium 1.7, Total Bilirubin 2.0 H, AST 35 D, ALT 35, Alkaline Phosphatase 109, C-Reactive Protein 8.7 H, Total Protein 7.6, Albumin 4.6 D, Globulin 3.0, Albumin/Globulin Ratio 1.5, Triglycerides 104, Cholesterol 159, LDL Cholesterol Direct 92.90 L, VLDL Cholesterol 21, HDL Cholesterol 31 L, Cholesterol/HDL Ratio 5.1 H I & O for Last 24 hours: Intake & Output 12/17/24 12/18/24 12/20/24 12/20/24 23:59 23:59 00:59 23:59 Intake Total 240 / 240 Balance 240 / 240 Weight 81.647 kg 81.647 kg Constitutional Constitutional: no acute distress, average body habitus and agitated *Routine HEENT Exam Head: Present normocephalic Eye: Present EOMI and PERRL ENT: Present mucous membranes moist *Routine Neck Exam Neck: Present supple; Absent lymphadenopathy *Routine Respiratory Exam Respiratory: Present CTA bilaterally; Absent rhonchi, wheezes or crackles *Routine Cardiovascular Exam Cardiovascular: Present RRR *Routine Abdominal Exam Abdominal: Present soft and normoactive bowel sounds; Absent tenderness, distended or rebound *Routine Rectal Exam Patient deferred: visual exam *Routine Exam Patient deferred: penile exam *Routine Extremities Exam Extremities: Absent cyanosis, clubbing or edema *Routine Skin Exam Skin: Present warm; Absent rash *Routine Neurological Exam Neurological: Present alert, oriented X3 and moving all extremities; Absent altered mental status Routine Psychiatric Exam Psychiatric: Present anxious and agitated Results Data Completed and Pending Labs on day of discharge: Labs from last 24 hours 12/20/24 12/20/24 12/19/24 06:30 01:20 23:00 WBC RBC Hgb Hct MCV MCH MCHC RDW Plt Count MPV Neut % (Auto) Lymph % (Auto) [place] % (Auto) Eos % (Auto) Baso % (Auto) Neut # (Auto) Lymph # (Auto) [place] # (Auto) Eos # (Auto) Baso # (Auto) ESR 4 Sodium 135 L Potassium 3.5 D Chloride 105 Carbon Dioxide 20 L Anion Gap 13.5 BUN 20 Creatinine 1.10 Estimated Creat Clear 104 Estimated GFR 75 Est GFR ( Amer) 90 Glucose 99 Lactate 1.0 2.1 Calcium 9.7 Magnesium 1.7 Total Bilirubin 2.0 H AST 35 D ALT 35 Alkaline Phosphatase 109 Total Creatine Kinase Troponin I < 0.01 C-Reactive Protein 8.7 H 10.6 H Total Protein 7.6 Albumin 4.6 D Globulin 3.0 Albumin/Globulin Ratio 1.5 Triglycerides 104 Cholesterol 159 LDL Cholesterol Direct 92.90 L VLDL Cholesterol 21 HDL Cholesterol 31 L Cholesterol/HDL Ratio 5.1 H Lipase TSH Urine Color Urine Appearance Urine pH Ur Specific [place] Urine Protein Urine Glucose (UA) Urine Ketones Urine Blood Urine Nitrate Urine Bilirubin Urine Urobilinogen Ur Leukocyte Esterase Urine RBC Urine WBC Ur Squamous Epith Cells Urine Bacteria Urine Mucus Urine Opiates Screen Urine Methadone Screen Ur Barbituates Screen Ur Phencyclidine Scrn Ur Amphetamines Screen U Benzodiazepines Scrn Urine Cocaine Screen U Marijuana (THC) Screen 12/19/24 12/19/24 19:30 17:40 WBC 13.4 H RBC 5.60 Hgb 16.8 Hct 48.1 MCV 85.9 MCH 30.0 MCHC 34.9 RDW 12.0 Plt Count 324 MPV 10.1 Neut % (Auto) 63.9 Lymph % (Auto) 23.3 [place] % (Auto) 11.8 H Eos % (Auto) 0.3 Baso % (Auto) 0.4 Neut # (Auto) 8.6 H Lymph # (Auto) 3.1 [place] # (Auto) 1.6 H Eos # (Auto) 0.0 Baso # (Auto) 0.1 ESR Sodium 138 Potassium 4.8 Chloride 103 Carbon Dioxide 21 L Anion Gap 18.8 H BUN 20 Creatinine 1.00 Estimated Creat Clear 115 Estimated GFR 83 Est GFR ( Amer) 101 Glucose 96 Lactate Calcium 10.7 H Magnesium 1.8 Total Bilirubin 3.1 H AST 63 H ALT 46 Alkaline Phosphatase 115 Total Creatine Kinase 96 Troponin I < 0.01 0.02 C-Reactive Protein Total Protein 9.9 H Albumin 5.5 H Globulin 4.4 H Albumin/Globulin Ratio 1.3 Triglycerides Cholesterol LDL Cholesterol Direct VLDL Cholesterol HDL Cholesterol Cholesterol/HDL Ratio Lipase 128 TSH 1.36 Urine Color Dark yellow Urine Appearance Clear Urine pH 6.5 Ur Specific [place] 1.025 Urine Protein Trace A Urine Glucose (UA) Negative Urine Ketones Large Urine Blood Trace A Urine Nitrate Negative Urine Bilirubin Trace Urine Urobilinogen 2.0 Ur Leukocyte Esterase Negative Urine RBC Occasional Urine WBC 5-10 Ur Squamous Epith Cells Occasional Urine Bacteria 2+ Urine Mucus 3+ Urine Opiates Screen Negative Urine Methadone Screen Negative Ur Barbituates Screen Negative Ur Phencyclidine Scrn Negative Ur Amphetamines Screen TNP U Benzodiazepines Scrn Negative Urine Cocaine Screen Negative U Marijuana (THC) Screen Positive H DS: Diagnosis Discharge Diagnosis (1) Leukocytosis: Status: Acute Code(s): D72.829 - Elevated white blood cell count, unspecified (2) History of opiate therapy: Status: Acute Code(s): Z92.29 - Personal history of other drug therapy (3) Elevated bilirubin: Status: Acute Code(s): R17 - Unspecified jaundice (4) History of hepatitis C: Status: Acute Code(s): Z86.19 - Personal history of other infectious and parasitic diseases (5) Inguinal hernia bilateral, non-recurrent: Status: Acute Code(s): K40.20 - Bilateral inguinal hernia, without obstruction or gangrene, not specified as recurrent (6) Dysuria: Status: Acute Code(s): R30.0 - Dysuria (7) Methamphetamine abuse: Status: Acute Code(s): F15.10 - Other stimulant abuse, uncomplicated Meds Home Medications and Allergies Home Medications ?Medication ?Instructions ?Recorded ?Confirmed ?Type buprenorphine 8 mg-naloxone 2 mg 2 tab sublingual DAILY 12/20/24 12/20/24 History sublingual tablet polyethylene glycol 3350 17 gram 17 g PO DAILY #30 ea 12/20/24 Rx oral powder packet (HealthyLax) polyethylene glycol 3350 17 17 g PO DAILY #850 grams 12/24/24 Rx gram/dose oral powder New Prescriptions to Start Prescriptions: polyethylene glycol 3350 [HealthyLax] Last Lopez Allergies Allergy/AdvReac Type Severity Reaction Status Date / Time No Known Allergies Allergy Unverified 12/20/24 07:13 Discharge Plan Disposition Patient Disposition: Home, Self-Care Condition: Good Follow up Plan Follow up with: Lyubov Garcia APRN [Referring] - 12/27/24 11:30 am Benjamín Daly MD [Staff Physician] - 12/29/24 1:30 pm (discuss elective hernia repair) Prescriptions/Medication Reconciliation: New polyethylene glycol 3350 [HealthyLax] 17 gram Powder In Packet 17 g PO DAILY Qty: 30 0RF Continued buprenorphine-naloxone 8-2 mg tablet, sublingual 2 tab sublingual DAILY Patient Comments: DISSOLVE TWO TABLETS UNDER THE TONGUE EVERY DAY Discontinued ibuprofen [IBU] 800 mg tablet 800 mg PO Q8HP PRN (Reason: Moderate Pain) Qty: 30 0RF No Action polyethylene glycol 3350 17 gram/dose powder 17 g PO DAILY Qty: 850 12RF Problem Reconciliation Problems Reviewed?: Yes Patient Discharge Instructions ACTIVITY: Continue current activity DIET: continue same diet Patient Instructions: DI for Urinary Tract Infection (UTI), DI for Dysuria -- Adult Print Language: [place] Providers Primary Care Provider: Provider,Referral Admit Provider: Last Lopez Attending Provider: Last Lopez
[2024-12-20 08:19] LABS: Erythrocyte Sedimentation Rate 3 mm/hr (0-15)
[2024-12-20] MEDS: DOCUSATE SODIUM 100 MG CAPSULE PO (08:32)
[2024-12-20] MEDS: BUPRENORPHINE/NALOXONE 8MG/2MG ODT 2 EACH SL (08:32)
[2024-12-20] MEDS: CEFTRIAXONE 1 GM 1 GM in 0.9 % SODIUM CHLORIDE 50 ML IV (08:33)
[2024-12-20] MEDS: AZITHROMYCIN 250MG TABLET 1000 MG PO (08:33)
[2024-12-20] MEDS: 0.9 % SODIUM CHLORIDE 1000ML 1,000 ML 100 ML IV (08:33)
[2024-12-20] MEDS: KETOROLAC 30MG/ML VIAL 30 MG IV (08:33)
--- NOTE | 2024-12-22 10:40 | SW/DCPLANNER ---
Phoned patient x2. Number keeps saying the subscriber is not in service. Faisal Pérez
[2024-12-22 16:14] LABS: Amphetamine Positive (.); Amphetamine (GC/MS) >3000 ng/mL (Cutoff=500); Amphetamines Positive (.); Methamphetamine Positive (.); Methamphetamine (GC/MS) >3000 ng/mL (Cutoff=500)
[2024-12-22 21:09] LABS: Mycoplasma genitalium, NAA Negative (Negative); Neisseria gonorrhoeae, NAA Negative (Negative); Trich vag by NAA Negative (Negative)
== END 2024-12-20 11:30 | disposition home or self-care (01) ==
LOC: ER 23:44 → 2ND 12-20 00:02
PROVIDERS: Nurse Practitioner Family; Physician Assistant; Admitting Provider Internal Medicine Adolescent Medicine; Emergency Provider Emergency Medicine; Visit Provider Internal Medicine Adolescent Medicine
DX: F15.921 Other stimulant use, unspecified with intoxication delirium (principal); F12.90 Cannabis use, unspecified, uncomplicated; K59.00 Constipation, unspecified; R30.0 Dysuria; K40.20 Bilateral inguinal hernia, without obstruction or gangrene, not specified as recurrent; Z72.89 Other problems related to lifestyle; Z79.899 Other long term (current) drug therapy; Z86.19 Personal history of other infectious and parasitic diseases; D72.829 Elevated white blood cell count, unspecified; R17 Unspecified jaundice
CPT/HCPCS: 36415; 74176; 80053; 80061; 80307; 80324; 81001; 82550; 83605; 83690; 83735; 84443; 84484; 85025; 85651; 86140; 87086; 87491; 87563; 87591; 87661; 93005; 99285; G0378; J0574; J0696; J1171; J1885; J7030; Q0162

== ENCOUNTER 2024-12-24 13:20 | Emergency (ER) | payer MEDICAID, SELFPAY ==
--- NOTE | 2024-12-24 13:20 | CT_ITS ---
FINAL REPORT TECHNIQUE: After the administration of oral and intravenous contrast, axial images were obtained through the abdomen and pelvis by computed tomography. The study was performed with techniques to keep radiation dose as low as reasonably achievable, (ALARA). Individual dose reduction techniques using automated exposure control or adjustment of mA and/or kV according to the patient's size were employed. CLINICAL HISTORY: RLQ R flank pain FINDINGS: Abdomen: The lung bases are clear. The liver parenchyma is homogeneous. The gallbladder is surgically absent. The spleen, pancreas, adrenals and kidneys appear unremarkable. The aorta is normal in caliber. There is no free fluid or adenopathy. Pelvis: There are postoperative changes at the base of the cecum consistent with prior appendectomy. There is a moderate amount of stool throughout the colon consistent with constipation. The urinary bladder is lately distended. There is no free fluid or adenopathy. IMPRESSION: Moderate stool burden consistent with constipation. Reviewed, Interpreted and Dictated by Romie Rose MD Transcribed by Violet Koch Authenticated and [facility]
[2024-12-24 13:21] VITALS: BP 126/82; PULSE 98; RESP 20; TEMP 36.8; O2SAT 98; BMI 29.0
--- NOTE | 2024-12-24 13:22 | HMH.EDGENADL ---
Discharge Plan Disposition Patient Disposition: Home, Self-Care Prescriptions Prescriptions: New polyethylene glycol 3350 17 gram/dose powder 17 g PO DAILY Qty: 850 12RF No Action polyethylene glycol 3350 [HealthyLax] 17 gram Powder In Packet 17 g PO DAILY Qty: 30 0RF buprenorphine-naloxone 8-2 mg tablet, sublingual 2 tab sublingual DAILY Patient Comments: DISSOLVE TWO TABLETS UNDER THE TONGUE EVERY DAY Activity Restrictions/Add. Instructions Additional Instructions/Restrictions: 10 capfuls of MiraLAX and 1 bottle of Gatorade or Pedialyte. Be sure you have the rest of the day off and probably the next day because you will have large volume bowel movements. Take 1 capful of MiraLAX each day from thereon out in perpetuity. Follow-up with your family doctor. Clinical Impressions Clinical Impression: Colicky abdominal pain Instructions Patient Instructions: DI for Acute Abdominal Pain Print Language Print Language: Polish Discharge ED Provider: Clint Richard General Adult HPI <Huey Green MD - Last Filed: 12/24/24 15:14> General Chief complaint: Abdominal Pain Stated complaint: abdominal pain Time Seen by Provider: 12/24/24 13:24 History of Present Illness HPI narrative: Patient is a 39-year-old male with past medical history of polysubstance abuse also on Suboxone who presents emergency department for evaluation abdominal pain. Onset has been present since he was discharged. Right lower quadrant and right flank. Associated nonbloody intermittent vomiting. Some dysuria reported no scrotal pain. Patient has not taken his Suboxone for 48 hours. No other acute complaints at this time. Please note that above description of symptoms, in this electronic medical record under categorization of recalled from ER triage doctor by RN are reflective of an initial nursing assessment, however, is not reflective of my full history and physical exam that was personally taken and clarified. Consequentially, this preceding description of symptoms, which may include the patient's categorized chief complaint in the EMR, do not reflect my personal clinical impression, and the ultimate description of history of present illness and patient stated complaints should be deferred to this section of the note. Unless stated otherwise or congruent with this section of the note, additional signs, symptoms, or incongruence should be interpreted as inaccurate with my clinical impression. Related Data Home Medications ?Medication ?Instructions ?Recorded ?Confirmed buprenorphine 8 mg-naloxone 2 mg 2 tab sublingual DAILY 12/20/24 12/20/24 sublingual tablet Previous Rx's ?Medication ?Instructions ?Recorded polyethylene glycol 3350 17 gram 17 g PO DAILY #30 ea 12/20/24 oral powder packet (HealthyLax) polyethylene glycol 3350 17 17 g PO DAILY #850 grams 12/24/24 gram/dose oral powder Allergies Allergy/AdvReac Type Severity Reaction Status Date / Time No Known Allergies Allergy Unverified 12/20/24 07:13 PFS <Huey Green MD - Last Filed: 12/24/24 15:14> PFS Disclaimer: The information contained in this section may have been updated after the patient was seen, as this information can be updated by other users. Medical History (Updated 12/24/24 @ 15:39 by Clint Richard MD) Abscess, dental Social History Smoking Status: Unknown if ever smoked alcohol intake: former current occupational status: employed Travel in the last 8 weeks: None Have you lived/traveled outside US in past 30 days?: No Contact w/someone who lives/traveled outside US past 30 days?: No Exposure to someone with infectious disease in past 14 days?: No Do you have a fever (greater than 100.4 F or 38 C)?: No Have you tested positive for COVID-19: No Exposed to someone with COVID-19 in past 14 days?: No Do you have a sore throat?: No Do you have a cough?: No Do you have any weakness?: No Do you have any diarrhea?: No Are you experiencing any unusual bleeding?: No Do you have any muscle aches/pain?: No Do you have any abdominal pain?: Yes Are you experiencing loss of taste or smell?: No Other Medical History Have you received the Flu Vaccine for this season: No Have you received the Pneumonia Vaccine: No <Huey Green MD - Last Filed: 12/24/24 15:14> ROS Obtained: Yes Systems reviewed as appropriate & no additional complaints except as documented Physical Exam <Huey Green MD - Last Filed: 12/24/24 15:14> General General appearance: alert and in no apparent distress Head Head exam: atraumatic and normocephalic Eye Eye exam: Present PERRL and EOMI ENT ENT exam: Present mucous membranes moist Neck Neck exam: Present normal inspection Chest Chest inspection: Present normal inspection and symmetric chest wall rise Respiratory Respiratory exam: Present normal lung sounds bilaterally; Absent respiratory distress Cardiovascular Cardiovascular exam: Present normal rhythm and tachycardia Abdominal Exam Abdominal exam: Present soft and tenderness (Mild, right lower quadrant) Extremities Exam Extremities exam: Present normal inspection Neurological Exam Neurological exam: Present alert Psychiatric Psychiatric exam: Present normal affect Skin Skin exam: Present warm and dry Medical Decision Making <Huey Green MD - Last Filed: 12/24/24 15:14> Medical Records Screening: Per USPSTF and CDC recommendations, given the prevalence of disease in our region, it is our hospital?s policy to screen for HIV and viral Hepatitis for all patients aged 18 and over and those with ongoing risk factors. [place] Inquiry Pt receiving controlled substance: No Vital Signs: 12/24/24 14:01 12/24/24 14:30 Pulse Rate 89 82 Blood Pressure 128/83 142/87 H Blood Pressure Mean 90 100 02 Sat by Pulse Oximetry 98 97 Lab Data Lab Results 12/24/24 13:25: WBC 6.9, RBC 5.51, Hgb 16.6, Hct 48.2, MCV 87.5, MCH 30.1, MCHC 34.4, RDW 11.9, Plt Count 265, MPV 9.8, Neut % (Auto) 54.4, Lymph % (Auto) 33.4, [place] % (Auto) 8.4, Eos % (Auto) 2.9, Baso % (Auto) 0.6, Neut # (Auto) 3.8, Lymph # (Auto) 2.3, [place] # (Auto) 0.6, Eos # (Auto) 0.2, Baso # (Auto) 0.0, Sodium 138, Potassium 4.3, Chloride 101, Carbon Dioxide 30, Anion Gap 11.3, BUN 12, Creatinine 1.00, Estimated GFR 83, Est GFR ( Amer) 101, Glucose 93, Lactate 1.7, Calcium 10.0, Total Bilirubin 0.9, AST 43, ALT 39, Alkaline Phosphatase 114, Total Protein 8.4 H, Albumin 5.1 H, Globulin 3.3 H, Albumin/Globulin Ratio 1.5, Lipase 140 12/24/24 13:39: Urine Color Yellow, Urine Appearance Slightly cloudy, Urine pH 8.5, Ur Specific Roberts 1.020, Urine Protein 2.0, Urine Glucose (UA) Negative, Urine Ketones Negative, Urine Blood Negative, Urine Nitrate Negative, Urine Bilirubin Negative, Urine Urobilinogen 2.0, Ur Leukocyte Esterase Negative, Urine RBC Occasional, Urine WBC Occasional, Ur Squamous Epith Cells None, Amorphous Sediment 4+, Urine Bacteria 1+ 12/24/24 13:25 12/24/24 13:25 Orders (Tests/Meds): ED MEDICATIONS Generic Name Dose Route Start Last Admin Trade Name Freq PRN Reason Stop Dose Admin Sodium Chloride 10 ml 12/24/24 13:35 12/24/24 13:36 Sodium Chloride 0.9% 10ml Syr (Rad Only) IV 01/23/25 13:34 10 ml NEEDED PRN Administration Maintain IV Site Discontinued Medications Generic Name Dose Route Start Last Admin Trade Name Freq PRN Reason Stop Dose Admin Buprenorphine/Naloxone 2 each 12/24/24 14:11 12/24/24 14:49 Buprenorphine/Naloxone 8mg/2mg Odt SL 12/24/24 14:12 2 each ONCE ONE Administration Lactated Ringer's 1,000 mls @ 999 mls/hr 12/24/24 13:21 12/24/24 13:27 Lactated Ringer's 1000 Ml Bag IV 12/24/24 14:21 999 mls/hr .Q1H1M ONE Administration Iopamidol 75 ml 12/24/24 13:35 12/24/24 13:36 Iopamidol-370 (76%);100ml Bottle IV 12/24/24 13:36 75 ml ONCE ONE Administration Promethazine HCl 25 mg 12/24/24 13:21 12/24/24 13:27 Promethazine Hcl 25mg/Ml 1ml Vial IV 12/24/24 13:22 25 mg ONCE ONE Administration Sodium Chloride 25 ml 12/24/24 13:21 12/24/24 13:27 Sodium Chloride 0.9% 25ml Bag IV 12/24/24 13:22 25 ml ONCE ONE Administration ORDERS Category Date Time Status CT abdomen pelvis w con Stat Cat Scan 12/24/24 13:20 Completed CBC w/Auto Diff [Complete Blood Count Auto Diff] Stat Lab 12/24/24 13:25 Completed CMP [Comprehensive Metabolic Panel] Stat Lab 12/24/24 13:25 Completed Lactic Acid Stat Lab 12/24/24 13:25 Completed Lipase Stat Lab 12/24/24 13:25 Completed UA [Urinalysis and Microscopic] Stat Lab 12/24/24 13:39 Completed Testicular US [US Testicular] Stat Ultrasound 12/24/24 14:37 Taken ECG Data Tracing #1: Independently interpreted by me rate is 90, rhythm is regular, axis is normal, no ST elevation in anatomical contiguous leads, QTc 378 Medical Decision Narrative: In summary patient is a 39-year-old male past medical history described above presents emergency department for evaluation of right lower quadrant right flank pain. Patient is hemodynamically stable nontoxic-appearing but arrival, afebrile. Differential diagnosis includes urethritis, pyelitis, incomplete bowel obstruction, among others. Workup we conducted with hematologic labs, urinalysis, CT abdomen pelvis IV contrast. Initial interventions include Phenergan, crystalloid bolus. Previous CT imaging reviewed by me, bilateral 2 cm fat-containing anal hernias. Initial work reviewed by me, hematologic labs are nonactionable, no leukocytosis no anemia no IGOR or critical electrolyte abnormality normal lipase urinalysis interpreted by me and not consistent with infection. CT imaging of the abdomen pelvis moderate stool burden consistent with constipation. No evidence of obstruction. On repeat evaluation patient stated that he had testicular pain and felt as if he was kicked in the nuts, with this with lower abdominal pain is important rule out torsion therefore testicular ultrasound be obtained at this time. This as well as repeat evaluation was pending at time of transfer care to the oncoming physician, Dr. Richard. <Clint Richard MD - Last Filed: 12/24/24 15:39> Vital Signs: 12/24/24 14:01 12/24/24 14:30 Pulse Rate 89 82 Blood Pressure 128/83 142/87 H Blood Pressure Mean 90 100 02 Sat by Pulse Oximetry 98 97 Lab Data Lab Results 12/24/24 13:25: WBC 6.9, RBC 5.51, Hgb 16.6, Hct 48.2, MCV 87.5, MCH 30.1, MCHC 34.4, RDW 11.9, Plt Count 265, MPV 9.8, Neut % (Auto) 54.4, Lymph % (Auto) 33.4, [place] % (Auto) 8.4, Eos % (Auto) 2.9, Baso % (Auto) 0.6, Neut # (Auto) 3.8, Lymph # (Auto) 2.3, [place] # (Auto) 0.6, Eos # (Auto) 0.2, Baso # (Auto) 0.0, Sodium 138, Potassium 4.3, Chloride 101, Carbon Dioxide 30, Anion Gap 11.3, BUN 12, Creatinine 1.00, Estimated GFR 83, Est GFR ( Amer) 101, Glucose 93, Lactate 1.7, Calcium 10.0, Total Bilirubin 0.9, AST 43, ALT 39, Alkaline Phosphatase 114, Total Protein 8.4 H, Albumin 5.1 H, Globulin 3.3 H, Albumin/Globulin Ratio 1.5, Lipase 140 12/24/24 13:39: Urine Color Yellow, Urine Appearance Slightly cloudy, Urine pH 8.5, Ur Specific Roberts 1.020, Urine Protein 2.0, Urine Glucose (UA) Negative, Urine Ketones Negative, Urine Blood Negative, Urine Nitrate Negative, Urine Bilirubin Negative, Urine Urobilinogen 2.0, Ur Leukocyte Esterase Negative, Urine RBC Occasional, Urine WBC Occasional, Ur Squamous Epith Cells None, Amorphous Sediment 4+, Urine Bacteria 1+ Orders (Tests/Meds): ED MEDICATIONS Generic Name Dose Route Start Last Admin Trade Name Freq PRN Reason Stop Dose Admin Sodium Chloride 10 ml 12/24/24 13:35 12/24/24 13:36 Sodium Chloride 0.9% 10ml Syr (Rad Only) IV 01/23/25 13:34 10 ml NEEDED PRN Administration Maintain IV Site Discontinued Medications Generic Name Dose Route Start Last Admin Trade Name Freq PRN Reason Stop Dose Admin Buprenorphine/Naloxone 2 each 12/24/24 14:11 12/24/24 14:49 Buprenorphine/Naloxone 8mg/2mg Odt SL 12/24/24 14:12 2 each ONCE ONE Administration Lactated Ringer's 1,000 mls @ 999 mls/hr 12/24/24 13:21 12/24/24 13:27 Lactated Ringer's 1000 Ml Bag IV 12/24/24 14:21 999 mls/hr .Q1H1M ONE Administration Iopamidol 75 ml 12/24/24 13:35 12/24/24 13:36 Iopamidol-370 (76%);100ml Bottle IV 12/24/24 13:36 75 ml ONCE ONE Administration Promethazine HCl 25 mg 12/24/24 13:21 12/24/24 13:27 Promethazine Hcl 25mg/Ml 1ml Vial IV 12/24/24 13:22 25 mg ONCE ONE Administration Sodium Chloride 25 ml 12/24/24 13:21 12/24/24 13:27 Sodium Chloride 0.9% 25ml Bag IV 12/24/24 13:22 25 ml ONCE ONE Administration ORDERS Category Date Time Status CT abdomen pelvis w con Stat Cat Scan 12/24/24 13:20 Completed CBC w/Auto Diff [Complete Blood Count Auto Diff] Stat Lab 12/24/24 13:25 Completed CMP [Comprehensive Metabolic Panel] Stat Lab 12/24/24 13:25 Completed Lactic Acid Stat Lab 12/24/24 13:25 Completed Lipase Stat Lab 12/24/24 13:25 Completed UA [Urinalysis and Microscopic] Stat Lab 12/24/24 13:39 Completed Testicular US [US Testicular] Stat Ultrasound 12/24/24 14:37 Taken Medical Decision Narrative: In summary patient is a 39-year-old male past medical history described above presents emergency department for evaluation of right lower quadrant right flank pain. Patient is hemodynamically stable nontoxic-appearing but arrival, afebrile. Differential diagnosis includes urethritis, pyelitis, incomplete bowel obstruction, among others. Workup we conducted with hematologic labs, urinalysis, CT abdomen pelvis IV contrast. Initial interventions include Phenergan, crystalloid bolus. Previous CT imaging reviewed by me, bilateral 2 cm fat-containing anal hernias. Initial work reviewed by me, hematologic labs are nonactionable, no leukocytosis no anemia no IGOR or critical electrolyte abnormality normal lipase urinalysis interpreted by me and not consistent with infection. CT imaging of the abdomen pelvis moderate stool burden consistent with constipation. No evidence of obstruction. On repeat evaluation patient stated that he had testicular pain and felt as if he was kicked in the nuts, with this with lower abdominal pain is important rule out torsion therefore testicular ultrasound be obtained at this time. This as well as repeat evaluation was pending at time of transfer care to the oncoming physician, Dr. Richard. Hilary: I assumed primary responsibility for this patient after signout from previous physician. On my evaluation, patient in no acute distress tolerating p.o. intake. He states that the pain is not present intermittently comes and goes. I independently examined patient, abdomen is soft, nontender, nondistended. Testicular exam normal with cremasteric reflex, no obvious outward signs of abnormality. Independent interpretation patient's workup with nonactionable hematologic labs. Nonactionable urine. On independent interpretation of patient's abdominal CT, no intra-abdominal acute pathology, but he is moderately constipated. Nothing in the pelvis as well. Patient's testicular ultrasound also independently interpreted, he has bilateral normal testicles, bilateral hydroceles and bilateral varicoceles, no acute pathology. On repeat evaluation, patient states that he is ready to go, patient to be sent home with bowel regimen and recommended that he take MiraLAX daily 1 capful after initial bowel regimen, he voiced his understanding. I feel this is likely arborist representative of colic pain in the setting of constipated stool. Because patient at baseline without signs or symptoms of clinical decompensation, deemed appropriate for discharge. Results were relayed to patient who voiced understanding and were agreeable to outpatient management and follow up. I discussed my clinical impression with patient and answered all questions. At this time, the evidence for any other entities in the differential is insufficient to warrant any further testing or ED observation. This was explained as well. Advisory was given that persistent or worsening symptoms require further evaluation. I confirmed the understanding of this discussion. Critical Care <Huey Green MD - Last Filed: 12/24/24 15:14> Critical Care Time Critical Care Time: No
[2024-12-24] MEDS: PROMETHAZINE HCL 25MG/ML 1ML VIAL 25 MG IV (13:27)
[2024-12-24] MEDS: SODIUM CHLORIDE 0.9% 25ML BAG 25 ML IV (13:27)
[2024-12-24] MEDS: LACTATED RINGERS 1000ML 1,000 ML 999 ML IV (13:27)
[2024-12-24 13:34] LABS: Basophils % 0.6 % (0.1-2.0); Eosinophils # 0.2 K/mm3 (0.0-0.4); Eosinophils % 2.9 % (0.1-12.0); Hematocrit 48.2 % (42.0-52.0); Hemoglobin 16.6 g/dL (14.1-18.0); Lymphocytes # 2.3 K/mm3 (0.7-4.5); Lymphocytes % 33.4 % (10-50); Mean Corpuscular HGB Conc 34.4 g/dL (31.8-35.4); Mean Corpuscular Hemoglobin 30.1 pg (27.0-31.2); Mean Corpuscular Volume 87.5 fl (80-94); Mean Platelet Volume 9.8 fl (7.4-10.4); Monocytes # 0.6 K/mm3 (0.1-1.0); Monocytes % 8.4 % (1.7-9.3); Neutrophils # 3.8 K/mm3 (1.8-7.8); Neutrophils % 54.4 % (37.0-80.0); Platelet Count 265 K/mm3 (142-424); Red Blood Count 5.51 M/mm3 (4.60-6.20); Red Cell Distribution Width 11.9 % (11.5-17.5); White Blood Count 6.9 K/mm3 (4.8-10.8)
[2024-12-24] MEDS: SODIUM CHLORIDE 0.9% 10ML SYR (RAD ONLY) 10 ML IV (13:36)
[2024-12-24] MEDS: IOPAMIDOL-370 (76%);100ML BOTTLE 75 ML IV (13:36)
[2024-12-24 13:42] LABS: Albumin Level 5.1 g/dl (3.5-5.0); Chloride 101 mmol/L (98-107); Potassium 4.3 mmoL/L (3.5-5.1); Sodium 138 mmol/L (136-145)
[2024-12-24 13:44] LABS: Microscopic, Urine URINE MICROSCOPIC (MICROSCOPIC)
[2024-12-24 13:44] LABS: Alanine Aminotransferase 39 U/L (12-78); Albumin/Globulin Ratio 1.5 (1.1-1.8); Alkaline Phosphatase 114 U/L (38-126); Anion Gap 11.3 mEq/L (5-15); Aspartate Amino Transferase 43 U/L (17-59); Bilirubin,Total 0.9 mg/dl (0.2-1.3); Blood Urea Nitrogen 12 mg/dl (9-20); Carbon Dioxide 30 mmol/L (22.0-30.0); Estimated Glomerular Filt Rate 83 ml/min (>60); GFR (African American) 101 ML/MIN (>60); Globulin 3.3 g/dL (1.3-3.2); Lactic Acid 1.7 mmol/L (0.7-2.1); Total Protein,Serum 8.4 g/dl (6.3-8.2)
[2024-12-24 13:45] LABS: Glucose 93 mg/dl (74-100); Lipase 140 U/L (23-300)
--- NOTE | 2024-12-24 13:45 | ECG_ITS ---
APPROVED REPORT Exam: Resting ECG HR:90 bpm ECG Measurements Heart Rate 90 AXES WY 155 P 48 QRSd 89 QRS 2 QT 330 T 53 QTc 378 Conclusion SINUS RHYTHM NORMAL ECG UNCONFIRMED REPORT Electronically signed by : FLASH MURPHY, 12/26/2024 03:14:42
[2024-12-24 13:54] LABS: Appearance,Urine Slightly Cloudy (Clear); Color,Urine Yellow (Yellow); Glucose,Urine (UA) Negative (Negative); PH,Urine 8.5 (5.0-8.5)
[2024-12-24 13:55] LABS: Bilirubin,Urine Negative (Negative); Blood, Urine Negative (Negative); Ketones,Urine Negative (Negative); Leukocyte Esterase,Urine Negative (Negative); Nitrate,Urine Negative (Negative)
[2024-12-24 14:01] VITALS: BP 128/83; PULSE 89; O2SAT 98
[2024-12-24 14:05] LABS: Amorphous Sediment,Urine 4+ /lpf; Bacteria,Urine 1+ /lpf; RBC,Urine Occasional #/hpf (0-3); WBC,Urine Occasional #/hpf (0-3)
[2024-12-24 14:30] VITALS: BP 142/87; PULSE 82; O2SAT 97
--- NOTE | 2024-12-24 14:37 | US_ITS ---
FINAL REPORT CLINICAL HISTORY: testicular pain FINDINGS: SCROTAL ULTRASOUND Ultrasound images of the testicles were obtained bilaterally. Color Doppler images were obtained. The right testicle measures 5.6 x 2.6 x 3.1 cm. The left testicle measures 5.5 x 2.7 x 3.0 cm. Arterial flow is identified bilaterally. No intratesticular masses are identified. A small varicocele is noted on the right. A minimal cyst is seen in the left epididymis. There are small hydroceles bilaterally. IMPRESSION: No evidence of testicular torsion or mass. Small bilateral hydroceles. Small right varicocele. Minimal cyst in the left epididymis. Reviewed, Interpreted and Dictated by Romie Rose MD Transcribed by Macarena Welch Authenticated and [facility]
[2024-12-24] MEDS: BUPRENORPHINE/NALOXONE 8MG/2MG ODT 2 EACH SL (14:49)
--- NOTE | 2024-12-24 15:13 | PC.NURSE ---
pt returned from ultrasound
[2024-12-24 15:44] VITALS: BP 134/80; PULSE 85; RESP 17; TEMP 36.8; O2SAT 98
--- NOTE | 2024-12-24 17:23 | PEERSUPPORT ---
Peer Support Note Patient Information Patient Information: DOS: 12/24/2024 ? Reason: Hx of SUSIE currently on Suboxone/Primary care ? Building Rapport: Pt stated he has been on suboxone since being released from detention. He is prescribed this medication from his primary care provider in [place]. He says the suboxone keeps him constipated and unable to have bowel movements then leads to back pain and stomach pain. He says he stopped taking his suboxone two days ago, and knows the withdrawals that will come but sees this is better than the issues with his stomach. He stated he is interested in an outpatient clinic where he is provided other services such as therapy and support groups. He has heard of injectable Sublocade and Vivitrol. He is interested in these types of medications. ? Ps provides to him contact information to [facility] to connect him to [facility] services along with medication options for injectables. ? Pt is willing to take a dose of suboxone to help with his withdrawals from stopping his medication. He is requesting food before he takes his medicine in fear of vomiting. ? Ps again encourages him to educate and consider injectable form sublocade or Brixaddi to eliminate these ongoing issues. ? Pt stated he has been out of detention since 2022, and has PTSD and anxiety. He has been able to maintain and work gainful employment. Stated his stomach and pain he is having has kept him from going to work for four days now and he does not think he is able to go back until he has his hernia surgery scheduled for December 29, 2024 here at [facility]. Pt is eager to have surgery and hopes to be back to himself in a couple of weeks. ? Ps actively listens validating feelings of stress. ? Legal Issues: actively on parole, to be served out in April 2025 ? Support system: Girl friend ? Potential barriers: Lack of connection to recovery Untreated mental health( Pt stated he has PTSD and anxiety) Medication misuse (not taking due to health issues as a side effect) ? Plan of Action: Take medication as directed for miralax to help with GI issues. Contact [facility] for appointment when ready Follow up phone calls with [facility] Self-care for eating and drinking and exercising for overall health.
== END 2024-12-24 15:45 | disposition home or self-care (01) ==
PROVIDERS: Emergency Medicine; Emergency Provider Emergency Medicine; PCP Nurse Practitioner
DX: R10.84 Generalized abdominal pain (principal); R10.31 Right lower quadrant pain; R11.10 Vomiting, unspecified; R30.0 Dysuria
CPT/HCPCS: 74177; 76870; 80053; 81001; 83605; 83690; 85025; 93005; 96361; 96374; 99285; J0574; J2550; J7120; Q9967

== ENCOUNTER 2025-01-05 10:52 | Outpatient (CLI) | payer MEDICAID, SELFPAY ==
[2025-01-05 11:32] LABS: Microscopic, Urine URINE MICROSCOPIC (MICROSCOPIC)
[2025-01-05 12:02] LABS: Basophils # 0.1 K/mm3 (0-0.2); Basophils % 0.6 % (0.1-2.0); Eosinophils # 0.2 K/mm3 (0.0-0.4); Hematocrit 44.7 % (42.0-52.0); Hemoglobin 15.7 g/dL (14.1-18.0); Lymphocytes # 2.8 K/mm3 (0.7-4.5); Lymphocytes % 34.5 % (10-50); Mean Corpuscular HGB Conc 35.1 g/dL (31.8-35.4); Mean Corpuscular Hemoglobin 30.6 pg (27.0-31.2); Mean Corpuscular Volume 87.1 fl (80-94); Mean Platelet Volume 10.1 fl (7.4-10.4); Monocytes # 0.7 K/mm3 (0.1-1.0); Monocytes % 8.1 % (1.7-9.3); Neutrophils # 4.3 K/mm3 (1.8-7.8); Neutrophils % 53.5 % (37.0-80.0); Platelet Count 244 K/mm3 (142-424); Red Blood Count 5.13 M/mm3 (4.60-6.20); Red Cell Distribution Width 12.2 % (11.5-17.5)
[2025-01-05 12:16] LABS: Alanine Aminotransferase 49 U/L (12-78); Albumin Level 4.5 g/dl (3.5-5.0); Albumin/Globulin Ratio 1.5 (1.1-1.8); Alkaline Phosphatase 86 U/L (38-126); Anion Gap 15.1 mEq/L (5-15); Aspartate Amino Transferase 46 U/L (17-59); Bilirubin,Total 1.3 mg/dl (0.2-1.3); Blood Urea Nitrogen 18 mg/dl (9-20); Calcium 9.9 mg/dl (8.4-10.2); Carbon Dioxide 26 mmol/L (22.0-30.0); Chloride 101 mmol/L (98-107); Estimated Glomerular Filt Rate 108 ml/min (>60); GFR (African American) 130 ML/MIN (>60); Globulin 3.1 g/dL (1.3-3.2); Glucose 108 mg/dl (74-100); Potassium 4.1 mmoL/L (3.5-5.1); Sodium 138 mmol/L (136-145); Total Protein,Serum 7.6 g/dl (6.3-8.2)
[2025-01-05 12:25] LABS: Appearance,Urine CLEAR (Clear); Bilirubin,Urine Negative (Negative); Blood, Urine Negative (Negative); Color,Urine YELLOW (Yellow); Glucose,Urine (UA) Negative (Negative); Ketones,Urine Negative (Negative); Leukocyte Esterase,Urine Negative (Negative); Nitrate,Urine Negative (Negative); PH,Urine 7.5 (5.0-8.5); Protein,Urine Negative (Negative); Urobilinogen,Urine 0.2 EU/dl (0.2)
[2025-01-05 12:56] LABS: Bacteria,Urine Trace /lpf
== END 2025-01-05 23:59 | disposition home or self-care (01) ==
LOC: PREOP 10:53
PROVIDERS: Nurse Anesthetist, Certified Registered; PCP Nurse Practitioner; Visit Provider Surgery
DX: K40.20 Bilateral inguinal hernia, without obstruction or gangrene, not specified as recurrent (principal)
CPT/HCPCS: 80053; 81001; 85025

== ENCOUNTER 2025-01-13 06:06 | Day surgery (SDC) | payer MEDICAID, SELFPAY ==
[2025-01-05 12:55] VITALS: BMI 26.6
[2025-01-13] VITALS (9 sets, daily range): BP systolic 101–141; BP diastolic 58–85; PULSE 89–109; RESP 16–18; TEMP 36.2–36.9; O2SAT 94–98
[2025-01-13] MEDS: 0.9 % SODIUM CHLORIDE 1000ML 1,000 ML 25 ML IV (06:34)
[2025-01-13] MEDS: LIDOCAINE 1% 20ML MDV 20 ML (07:27)
--- NOTE | 2025-01-13 07:30 | EXP.ANES.CKL ---
[facility] Disclaimer: The information contained in this section may have been updated after the patient was seen, as this information can be updated by other users. Medical History Hepatitis C Kidney stone Urinary tract infection Seizure disorder Eczema Irritable bowel syndrome (IBS) Abscess, dental Surgical History History of umbilical hernia repair History of appendectomy Family History Other No significant family history Social History (Updated 01/13/25 @ 06:31 by Jackie Saez RN) Smoking Status: Current every day smoker alcohol intake: never substance use type: former substance user current occupational status: unemployed Travel in the last 8 weeks: None [facility] Anesthesia Checklist Patient Identification Patient Identification: Arm Band Structural Data Admitted From: Home Planned Operative Procedure/s: Laparoscopic Bilateral Inguinal Hernia Repair Consent for Planned Operative Procedure(s) Verified: Yes Verified Documents: Surgical Consent and History and Physical NPO Status Verified Time NPO: 00:00 Additional verifications Anesthesia Reactions: No Hx Blood Transfusions: No Blood Transfusion Reaction: No Airway Assessment Mallampati Score:: Class II C-Spine Mobility Assessed: Yes TMJ Mobility Assessed: Yes Dentition: Good Dentition (upper endentulous) Neurological Assessment Level of Consciousness: Awake, Alert and Appropriate Anesthesia Plan Anesthesia Risk discussed: Yes Anesthesia Plan: Verified ASA Class: II Anesthesia Type: General
[2025-01-13] MEDS: CEFAZOLIN SODIUM 2 GM in 0.9 % SODIUM CHLORIDE 100 ML IV (07:56)
--- NOTE | 2025-01-13 09:34 | EXP.OP.NOTE ---
Date of procedure: 01/13/25 Pre-op Diagnosis:: Bilateral inguinal hernia Post-op Diagnosis:: Same Procedure performed:: Laparoscopic bilateral hernia repair Surgeon:: Benjamín Daly MD Anesthesia: GETMarques Estimated blood loss (mL): 15 Operative findings:: Large complex left inguinal hernia with incarcerated preperitoneal fat and severe associated fat stranding/adhesions Moderate right inguinal hernia with incarcerated preperitoneal fat Operative note:: After informed consent was obtained the patient was taken to the operating room and placed in the supine position. General anesthesia was induced and his abdomen was prepped and draped in a sterile fashion. After infiltration with local anesthetic an infraumbilical incision was made. The deep subcutaneous tissue was dissected with combination of sharp dissection and blunt dissection to expose the overlying anterior fascial margin. A transverse incision was made in the anterior fascial margin along the medial aspect of the rectus musculature on the left. The rectus was retracted laterally and the dissecting balloon was placed in position and insufflated. Once the dissecting balloon was removed the working port was secured in position. Under direct visualization two 5 mm trocars were placed in the midline after infiltration with local anesthetic. Careful dissection was used to take down adhesions/peritoneum starting along the right lateral margin. A combination of blunt dissection and harmonic rolan was utilized to complete the dissection (lateral to medial). A moderate right inguinal hernia with incarcerated preperitoneal fat was encountered. The peritoneum was retracted cephalad as dissection continued to remove the incarcerated preperitoneal fat. In a similar manner dissection was completed on the left. The defect on the left was larger and more complex with a much larger portion of incarcerated preperitoneal fat. Severe associated fat stranding/adhesions were also noted. Once the dissections were complete Bard 3DMax light mesh was placed in position on the left and secured with a single OPTi fix tack laterally and a single OPTi fix tack medially. One additional tack was placed medial to the epigastric vessels. The mesh was then placed on the right in a similar manner and secured in a similar manner. Insufflation was carefully released under direct visualization in order to confirm mesh positioning. All trocars were removed. Fascia at the infraumbilical trocar site was reapproximated with running 0 Vicryl. Skin was then closed with 4-0 Monocryl in a running subcuticular manner. Dressings were applied and the patient was transferred to recovery in stable condition after extubation. Condition: stable Disposition: PACU Specimens:: none Complications:: No immediate
[2025-01-13] MEDS: HYDROMORPHONE 2MG/ML SYRINGE 0.5 MG IV ×4 (09:48→10:08)
--- NOTE | 2025-01-13 09:50 | EXP.ANES.I ---
[facility] Anesthesia Record Part I Anesthesia Record I Intake, IV Amount: 1,400 Hydration: Adequate Estimated blood loss (mL): 10 Urine output (mL): 50 Blood Products used (#): none Blood Pressure: 120/72 SaO2: 98 Pulse Rate: 103 Airway Patency: Patent Respiratory Rate: 16 Temperature: 98.4 F Patient is:: Drowsy and Stable Stable to PACU at:: 09:40
[2025-01-13] MEDS: MEPERIDINE 25MG/ML 1ML SYRINGE 25 MG IV (10:05)
--- NOTE | 2025-01-13 11:17 | EXP.ANES.II ---
[facility] Anesthesia Record Part II Anesthesia Record Part II Discharge Time: 10:10 Destination: Surgical Day Care (OP Surgery) PACU nurse assessment reviewed?: Yes Patient Condition:: Good Anesthesia Complications:: None Swallowing reflex intact?: Yes Airway Patency: Patent Cyanosis?: No Blood Pressure: 101/58 SaO2: 97 Respiratory Rate: 18 Pulse Rate: 109 Temperature: 98.4 F Mental Status: Alert & Oriented Pain level:: 7 Nausea and/or vomitting:: None Intake, IV Amount: 0 Hydration: Adequate
[2025-01-13 12:33] LABS: Microscopic,Cath URINE MICROSCOPIC (MICROSCOPIC)
[2025-01-13 12:46] LABS: Appearance,Urine/Cath CLEAR (Clear); Bilirubin,Cath Negative (Negative); Blood, Urine/Cath Negative (Negative); Color,Urine/Cath YELLOW (Yellow); Glucose,Urine/Cath (UA) Negative (Negative); Ketones,Urine/Cath TRACE (Negative); Leukocyte Esterase,Cath Negative (Negative); Nitrate,Cath Negative (Negative); PH,Urine/Cath 5.5 (5.0-8.5); Protein,Urine/Cath Negative (Negative)
== END 2025-01-13 10:46 | disposition home or self-care (01) ==
PROVIDERS: PCP Nurse Practitioner; Visit Provider Surgery
PROC: (CPT 49650; principal; 2025-01-13 07:30)
DX: K40.00 Bilateral inguinal hernia, with obstruction, without gangrene, not specified as recurrent (principal)
CPT/HCPCS: 49650; 81001; 96374; C1781; J0690; J1100; J1171; J1885; J2175; J2250; J2405; J3010; J7030; J7120

== ENCOUNTER 2025-01-16 12:40 | Emergency (ER) | payer MEDICAID, SELFPAY ==
[2025-01-16 12:45] VITALS: PULSE 97; O2SAT 99
--- NOTE | 2025-01-16 12:50 | CT_ITS ---
PROCEDURE INFORMATION: Exam: CT Abdomen And Pelvis With Contrast Exam date and time: 01/16/2025 1:48 PM Age: 39 years old Clinical indication: Abdominal pain; Additional info: Recent hernia repair (on 01/13/2025), abd pain, constipation TECHNIQUE: Imaging protocol: Computed tomography of the abdomen and pelvis with contrast. Radiation optimization: All CT scans at this facility use at least one of these dose optimization techniques: automated exposure control; mA and/or kV adjustment per patient size (includes targeted exams where dose is matched to clinical indication); or iterative reconstruction. Contrast material: ISOVUE; Contrast volume: 75 ml; Contrast route: IV; COMPARISON: CT ABDOMEN PELVIS W CON 12/24/2024 1:34 PM FINDINGS: Liver: Normal. No mass. Gallbladder and biliary ducts: Normal. No calcified stones. No ductal dilation. Pancreas: Normal. No ductal dilation. Spleen: Normal. No splenomegaly. Adrenal glands: Normal. No mass. Kidneys and ureters: There is no evidence of renal or ureteral calcifications. Stomach and bowel: Rectum is distended 5.6 cm with fecal material. Constipation throughout the colon Appendix: Status post appendectomy Intraperitoneal space: Minimal free fluid in the pelvis Vasculature: Unremarkable. No abdominal aortic aneurysm. Lymph nodes: Unremarkable. No enlarged lymph nodes. Urinary bladder: There is air within the bladder. This may reflect instrumentation or infection.. Reproductive: Unremarkable as visualized. Bones/joints: Unremarkable. No acute fracture. Soft tissues: Air in the subcutaneous fat anterior to the pelvis. For example series 3, image 107 -101. Air in both umbilical regions extending into the scrotum. For example series 3, image 115 -129. Findings consistent with recent surgery. IMPRESSION: 1. Air in the subcutaneous fat anterior to the pelvis. For example series 3, image 107 -101. Air in both umbilical regions extending into the scrotum. For example series 3, image 115 -129. Findings consistent with recent surgery. 2. There is air within the bladder. This may reflect instrumentation or infection.. 3 constipation throughout the colon
[2025-01-16 12:52] VITALS: BP 143/87; PULSE 80; RESP 20; TEMP 36.9; O2SAT 98; BMI 27.4
--- NOTE | 2025-01-16 12:53 | ED_ITS ---
Discharge Plan Disposition Patient Disposition: Home, Self-Care Chief Complaint: Abdominal Pain Prescriptions Prescriptions: No Action buprenorphine-naloxone 8-2 mg tablet, sublingual 2 tab sublingual DAILY Patient Comments: DISSOLVE TWO TABLETS UNDER THE TONGUE EVERY DAY ibuprofen 800 mg tablet 800 mg PO TID docusate sodium 100 mg capsule 100 mg PO BID ondansetron 4 mg tablet,disintegrating 4 mg PO Q6H oxycodone-acetaminophen [Percocet] 5-325 mg tablet 1 tab PO Q6H PRN (Reason: post-op pain) Qty: 23 0RF Referrals Follow up/Referrals: Provider,Referral, MD [Primary Care Provider] - See instructions Activity Restrictions/Add. Instructions Additional Instructions/Restrictions: At this time it was felt you are safe to be discharged home. If new or worsening symptoms please do not hesitate to return the emergency department. Clinical Impressions Clinical Impression: Constipation, Abdominal pain Instructions Patient Instructions: DI for Acute Abdominal Pain Print Language Print Language: Romansh Discharge ED Provider: Clint Richard General Adult HPI General Chief complaint: Abdominal Pain Stated complaint: Hernia Surgery 3 days ago, ABD pain/Constipation Time Seen by Provider: 01/16/25 12:43 History of Present Illness HPI narrative: Patient is a 39-year-old male with recent hernia surgery on [address] Daly who presents emergency department for evaluation of abdominal pain and constipation. Patient has been passing flatus since his operation however has not had a bowel movement. He feels as if something is stuck up his rectum and has a low paroxysmal abdominal pain. He has been unable to have a bowel movement. Surgical note reviewed by me. Patient had large left inguinal hernia with incarcerated preperitoneal fat and severe associated fat stranding and adhesions as well as a moderate right inguinal hernia with incarcerated preperitoneal fat. Repair was conducted laparoscopically with mesh. No other acute complaints at this time. Please note that above description of symptoms, in this electronic medical record under categorization of recalled from ER triage doctor by RN are reflective of an initial nursing assessment, however, is not reflective of my full history and physical exam that was personally taken and clarified. Consequentially, this preceding description of symptoms, which may include the patient's categorized chief complaint in the EMR, do not reflect my personal clinical impression, and the ultimate description of history of present illness and patient stated complaints should be deferred to this section of the note. Unless stated otherwise or congruent with this section of the note, additional signs, symptoms, or incongruence should be interpreted as inaccurate with my clinical impression. Related Data Home Medications ?Medication ?Instructions ?Recorded ?Confirmed buprenorphine 8 mg-naloxone 2 mg 2 tab sublingual DAILY 12/20/24 01/13/25 sublingual tablet docusate sodium 100 mg capsule 100 mg PO BID 01/05/25 01/13/25 ibuprofen 800 mg tablet 800 mg PO TID 01/05/25 01/13/25 ondansetron 4 mg disintegrating 4 mg PO Q6H 01/05/25 01/13/25 tablet Previous Rx's ?Medication ?Instructions ?Recorded oxycodone-acetaminophen 5 mg-325 1 tab PO Q6H PRN post-op pain #23 01/13/25 mg tablet (Percocet) tabs Allergies Allergy/AdvReac Type Severity Reaction Status Date / Time bee venom protein (honey bee) Allergy Anaphylaxis Verified 01/13/25 06:19 glecaprevir (From Mavyret) AdvReac Vomiting Verified 01/13/25 06:19 hydrocodone AdvReac Vomiting Verified 01/13/25 06:19 morphine AdvReac Nausea Verified 01/13/25 06:19 [email or web address] (From Mavyret) AdvReac Vomiting Verified 01/13/25 06:19 PFSH PFSH Disclaimer: The information contained in this section may have been updated after the patient was seen, as this information can be updated by other users. Medical History (Updated 01/16/25 @ 15:54 by Huey Green MD) Hepatitis C Kidney stone Urinary tract infection Seizure disorder Eczema Irritable bowel syndrome (IBS) Abscess, dental Surgical History History of umbilical hernia repair History of appendectomy Family History Other No significant family history Social History (Updated 01/13/25 @ 07:31 by Neel Brambila CRNA) Smoking Status: Current every day smoker alcohol intake: never substance use type: former substance user current occupational status: unemployed Travel in the last 8 weeks: None Have you lived/traveled outside [place] in past 30 days?: No Contact w/someone who lives/traveled outside US past 30 days?: No Exposure to someone with infectious disease in past 14 days?: No Do you have a fever (greater than 100.4 F or 38 C)?: No Have you tested positive for COVID-19: No Exposed to someone with COVID-19 in past 14 days?: No Do you have a sore throat?: No Do you have a cough?: No Do you have any weakness?: No Do you have any diarrhea?: No Are you experiencing any unusual bleeding?: No Do you have any muscle aches/pain?: No Do you have any abdominal pain?: No Are you experiencing loss of taste or smell?: No Other Medical History Have you received the Flu Vaccine for this season: No Have you received the Pneumonia Vaccine: No ROS Obtained: Yes Systems reviewed as appropriate & no additional complaints except as documented Physical Exam General General appearance: alert and in no apparent distress Head Head exam: atraumatic and normocephalic Eye Eye exam: Present PERRL ENT ENT exam: Present mucous membranes moist Neck Neck exam: Present normal inspection Chest Chest inspection: Present normal inspection and symmetric chest wall rise Respiratory Respiratory exam: Present normal lung sounds bilaterally; Absent respiratory distress Cardiovascular Cardiovascular exam: Present regular rate and normal rhythm Abdominal Exam Abdominal exam: Present soft and other (Well-appearing surgical sites. Bruising and mild edema over the scrotum.); Absent tenderness Extremities Exam Extremities exam: Present normal inspection Neurological Exam Neurological exam: Present alert Psychiatric Psychiatric exam: Present normal affect Skin Skin exam: Present warm and dry Medical Decision Making Medical Records Screening: Per USPSTF and CDC recommendations, given the prevalence of disease in our region, it is our hospital?s policy to screen for HIV and viral Hepatitis for all patients aged 18 and over and those with ongoing risk factors. [place] Inquiry Pt receiving controlled substance: No Vital Signs: 01/16/25 12:45 01/16/25 12:52 01/16/25 14:00 Temperature 98.5 F Temperature Source Oral Pulse Rate 97 H 85 Pulse Rate [Left Radial] 80 Respiratory Rate 20 Blood Pressure 125/91 H Blood Pressure [Right Arm] 143/87 H Blood Pressure Mean [Right Arm] 105 02 Sat by Pulse Oximetry 99 98 97 Oxygen Delivery Method Room Air Room Air Room Air 01/16/25 14:30 01/16/25 15:00 Temperature Temperature Source Pulse Rate 89 84 Pulse Rate [Left Radial] Respiratory Rate Blood Pressure 128/93 H 127/91 H Blood Pressure [Right Arm] Blood Pressure Mean [Right Arm] 02 Sat by Pulse Oximetry 95 97 Oxygen Delivery Method Room Air Room Air Lab Data Lab Results 01/16/25 13:09: Urine Color Yellow, Urine Appearance Clear, Urine pH 8.5, Ur Specific [place] 1.015, Urine Protein Negative, Urine Glucose (UA) Negative, Urine Ketones Negative, Urine Blood Negative, Urine Nitrate Negative, Urine Bilirubin Negative, Urine Urobilinogen 2.0, Ur Leukocyte Esterase Negative, Urine RBC None, Urine WBC None, Ur Squamous Epith Cells None, Urine Bacteria None 01/16/25 13:30: WBC 13.8 H, RBC 5.31, Hgb 16.1, Hct 46.6, MCV 87.8, MCH 30.3, MCHC 34.5, RDW 12.2, Plt Count 275, MPV 9.9, Neut % (Auto) 77.8, Lymph % (Auto) 11.7, Gove % (Auto) 9.0, Eos % (Auto) 0.7, Baso % (Auto) 0.4, Neut # (Auto) 10.8 H, Lymph # (Auto) 1.6, Gove # (Auto) 1.3 H, Eos # (Auto) 0.1, Baso # (Auto) 0.1, Sodium 138, Potassium 4.3, Chloride 101, Carbon Dioxide 30, Anion Gap 11.3, BUN 21 H, Creatinine 0.90, Estimated Creat Clear 120, Estimated GFR 94, Est GFR ( Amer) 114, Glucose 103 H, Calcium 10.3 H, Total Bilirubin 1.0, AST 44, ALT 42, Alkaline Phosphatase 108, Total Protein 7.9, Albumin 4.5, Globulin 3.4 H , Albumin/Globulin Ratio 1.3, Lipase 229 01/16/25 13:30 01/16/25 13:30 Orders (Tests/Meds): ED MEDICATIONS Discontinued Medications Generic Name Dose Route Start Last Admin Trade Name Freq PRN Reason Stop Dose Admin Acetaminophen 1,000 mg 01/16/25 12:50 01/16/25 13:38 Acetaminophen 1,000mg/100ml Vial IV 01/16/25 12:51 1,000 mg ONCE ONE Administration Lactated Ringer's 1,000 mls @ 999 mls/hr 01/16/25 12:59 01/16/25 13:37 Lactated Ringer's 1000 Ml Bag IV 01/16/25 13:59 999 mls/hr .Q1H1M ONE Administration Iopamidol 75 ml 01/16/25 13:48 01/16/25 13:49 Iopamidol-370 (76%);100ml Bottle IV 01/16/25 13:49 75 ml ONCE ONE Administration Ondansetron HCl 4 mg 01/16/25 12:50 01/16/25 13:37 Ondansetron 4mg/2ml Vial IV 01/16/25 12:51 4 mg ONCE ONE Administration Sodium Chloride 10 ml 01/16/25 13:48 01/16/25 13:48 Sodium Chloride 0.9% 10ml Syr (Rad Only) IV 01/16/25 13:49 10 ml ONCE ONE Administration ORDERS Category Date Time Status CT abdomen pelvis w con Stat Cat Scan 01/16/25 12:50 Completed CBC w/Auto Diff [Complete Blood Count Auto Diff] Stat Lab 01/16/25 13:30 Completed CMP [Comprehensive Metabolic Panel] Stat Lab 01/16/25 13:30 Completed Lipase Stat Lab 01/16/25 13:30 Completed UA [Urinalysis and Microscopic] Stat Lab 01/16/25 13:09 Completed ECG Data Tracing #1: Independently interpreted by me rate is 101, rhythm is regular, axis is normal, no ST elevation in anatomical contiguous leads, QTc 362. Medical Decision Narrative: In summary patient is a 39-year-old male with past medical history described above presents emergency department for evaluation of lower abdominal pain after recent bilateral inguinal hernia repair. Patient is hemodynamically stable nontoxic-appearing upon arrival, afebrile, slight tachycardia, not particularly tender anywhere in his abdomen. Given that he has paroxysmal severe pain I suspect that he has a large stool ball from constipation however surgical complications such as postoperative fluid collection and other intra-abdominal pathology must be ruled out first before disimpaction versus enema. Workup will be conducted with hematologic labs, urinalysis, CT abdomen pelvis IV contrast. Initial inventions include IV Tylenol, Zofran, crystalloid bolus. Initial hematologic labs reviewed by me, leukocytosis of 13.8 no IGOR or critical electrolyte abnormality. Urinalysis interpreted by me and not consistent with infection. CT imaging the abdomen and pelvis air in the subcutaneous fat of the pelvis and air within the bladder, this is expected and patient's recent perioperative state. There is constipation throughout the colon, given this patient was given a milk of molasses enema with success and felt better and is appropriate for outpatient management at this time. Procedure: Procedure performed was ultrasound-guided IV. Procedure performed by Huey Green. Using real-time ultrasound guidance a long 18-gauge IV was placed in the right basilic vein. Vessel cannula was patent. Images were not saved to apartment archive. Patient tolerated procedure well. There were no immediate complications. Critical Care Critical Care Time Critical Care Time: No
--- NOTE | 2025-01-16 13:03 | ECG_ITS ---
APPROVED REPORT Exam: Resting ECG HR:101 bpm ECG Measurements Heart Rate 101 AXES OR 148 P 61 QRSd 86 QRS 3 QT 304 T 55 QTc 362 Conclusion SINUS TACHYCARDIA ABNORMAL RHYTHM ECG Electronically signed by : BRITNEY BROWN, 01/17/2025 03:59:10
[2025-01-16 13:15] LABS: Microscopic, Urine URINE MICROSCOPIC (MICROSCOPIC)
[2025-01-16 13:19] LABS: Appearance,Urine CLEAR (Clear); Bilirubin,Urine Negative (Negative); Blood, Urine Negative (Negative); Color,Urine YELLOW (Yellow); Glucose,Urine (UA) Negative (Negative); Ketones,Urine Negative (Negative); Leukocyte Esterase,Urine Negative (Negative); Nitrate,Urine Negative (Negative); PH,Urine 8.5 (5.0-8.5); Protein,Urine Negative (Negative); Specific Gravity, Urine 1.015 (1.005-1.030)
[2025-01-16] MEDS: ONDANSETRON 4MG/2ML VIAL 4 MG IV (13:37)
[2025-01-16] MEDS: LACTATED RINGERS 1000ML 1,000 ML 999 ML IV (13:37)
[2025-01-16] MEDS: ACETAMINOPHEN 1,000MG/100ML VIAL 1000 MG IV (13:38)
[2025-01-16 13:48] LABS: Albumin Level 4.5 g/dl (3.5-5.0); Basophils # 0.1 K/mm3 (0-0.2); Basophils % 0.4 % (0.1-2.0); Chloride 101 mmol/L (98-107); Eosinophils # 0.1 K/mm3 (0.0-0.4); Eosinophils % 0.7 % (0.1-12.0); Hematocrit 46.6 % (42.0-52.0); Hemoglobin 16.1 g/dL (14.1-18.0); Lymphocytes # 1.6 K/mm3 (0.7-4.5); Lymphocytes % 11.7 % (10-50); Mean Corpuscular HGB Conc 34.5 g/dL (31.8-35.4); Mean Corpuscular Hemoglobin 30.3 pg (27.0-31.2); Mean Corpuscular Volume 87.8 fl (80-94); Mean Platelet Volume 9.9 fl (7.4-10.4); Monocytes # 1.3 K/mm3 (0.1-1.0); Neutrophils # 10.8 K/mm3 (1.8-7.8); Neutrophils % 77.8 % (37.0-80.0); Platelet Count 275 K/mm3 (142-424); Potassium 4.3 mmoL/L (3.5-5.1); Red Blood Count 5.31 M/mm3 (4.60-6.20); Red Cell Distribution Width 12.2 % (11.5-17.5); Sodium 138 mmol/L (136-145); White Blood Count 13.8 K/mm3 (4.8-10.8)
[2025-01-16] MEDS: SODIUM CHLORIDE 0.9% 10ML SYR (RAD ONLY) 10 ML IV (13:48)
[2025-01-16] MEDS: IOPAMIDOL-370 (76%);100ML BOTTLE 75 ML IV (13:49)
[2025-01-16 13:51] LABS: Alanine Aminotransferase 42 U/L (12-78); Albumin/Globulin Ratio 1.3 (1.1-1.8); Alkaline Phosphatase 108 U/L (38-126); Anion Gap 11.3 mEq/L (5-15); Aspartate Amino Transferase 44 U/L (17-59); Blood Urea Nitrogen 21 mg/dl (9-20); Carbon Dioxide 30 mmol/L (22.0-30.0); Creatinine Clearance Estimated 120 mL/min (50-200); Estimated Glomerular Filt Rate 94 ml/min (>60); GFR (African American) 114 ML/MIN (>60); Globulin 3.4 g/dL (1.3-3.2); Lipase 229 U/L (23-300); Total Protein,Serum 7.9 g/dl (6.3-8.2)
[2025-01-16 13:52] LABS: Calcium 10.3 mg/dl (8.4-10.2); Glucose 103 mg/dl (74-100)
[2025-01-16 14:00] VITALS: BP 125/91; PULSE 85; O2SAT 97
[2025-01-16 14:30] VITALS: BP 128/93; PULSE 89; O2SAT 95
[2025-01-16 15:00] VITALS: BP 127/91; PULSE 84; O2SAT 97
[2025-01-16 15:58] VITALS: BP 125/86; BP 128/90; PULSE 80; RESP 16; RESP 20; TEMP 36.7; TEMP 36.8; O2SAT 98; O2SAT 99
== END 2025-01-16 16:00 | disposition home or self-care (01) ==
PROVIDERS: Emergency Provider Emergency Medicine
DX: K59.00 Constipation, unspecified (principal); R10.30 Lower abdominal pain, unspecified; Z98.890 Other specified postprocedural states; Z72.0 Tobacco use
CPT/HCPCS: 74177; 80053; 81001; 83690; 85025; 93005; 96361; 96374; 96375; 99285; J0131; J2405; J7120; Q9967